=== PATIENT | female | born 1930 | race Caucasian/White ===

== ENCOUNTER 2019-02-23 10:24 | Emergency (ER) | payer MEDICARE, OTHER ==
[~2019-02-23] VITALS: Ht 162 cm; Wt 61.4 kg
[2019-02-23 10:47] LABS: BILIRUBIN,URINE NEGATIVE (NEGATIVE); CLARITY,URINE CLEAR; COLOR,URINE YELLOW; GLUCOSE, URINE (UA) NEGATIVE (NEGATIVE); KETONES,URINE NEGATIVE (NEGATIVE); LEUKOCYTE ESTERASE ,URINE 1+ (NEGATIVE); NITRITE,URINE NEGATIVE (NEGATIVE); PH,URINE 5.5 (5-9); PROTEIN,URINE NEGATIVE (NEGATIVE)
[2019-02-23] MEDS ORDERED: LOTE5GEL (10:48)
[2019-02-23] MEDS ORDERED: LATA7.5D (10:48)
[2019-02-23 10:55] LABS: BACTERIA,URINE FEW /HPF; RBC,URINE 0-2 /HPF; YEAST,URINE FEW /HPF
--- NOTE | 2019-02-23 10:56 | ED Abdominal Pain ---
General Chief Complaint: Abdominal/GI Problems Stated Complaint: ABD PAIN Nursing Triage Note: ARRIVED VIA AMB TO ROOM 07. COMPLAINS OF RUQ PAIN SINCE END OF JANUARY. HAS HAD A SCAN AND WAS TOLD SHE HAD PROBLEMS WITH HER GALLBLADDER BUT NEEDS A SCAN THAT IS DONE HERE AND WAS TOLD SHE COULDNT GET IN FOR THAT FOR A COUPLE OF FEW WEEKS. Sepsis Screen: No Definite Risk Source of Information: Patient Exam Limitations: No Limitations History of Present Illness Date Seen by Provider: Feb 23, 2019 Time Seen by Provider: 10:53 Initial Comments Otherwise healthy 88-year-old female who takes no medications present to ER with right upper quadrant abdominal pain since February 06. The pain has been constant since then and it is occasionally worse. Food sometimes causes her heartburn but does not worsen the pain. She had a gallbladder ultrasound at [facility] (primary care is Dr. Engel). Reportedly, this showed a polyp in the gallbladder and she is scheduled for a hepatobiliary scan on March 09. Timing/Duration: 1-2 Days Severity/Quality: Moderate Location: RUQ Radiation: No Radiation Activities at Onset: None Associated Symptoms: Denies Symptoms Allergies and Home Medications Allergies Coded Allergies: No Known Drug Allergies (Unverified , 02/23/19) Home Medications Cephalexin 500 Mg Capsule, 500 MG PO TID Prescribed by: JULIET ESPINO on 02/23/19 1242 Fluconazole 150 Mg Tablet, 150 MG PO DAILY Prescribed by: JULIET ESPINO on 02/23/19 1242 Pantoprazole Sodium 40 Mg Tablet.dr, 40 MG PO DAILY Prescribed by: JULIET ESPINO on 02/23/19 1238 Tramadol HCl 50 Mg Tablet, 50 MG PO Q6H PRN for PAIN-MODERATE (5-7) Prescribed by: JULIET ESPINO on 02/23/19 1238 Patient Home Medication List Home Medication List Reviewed: Yes Review of Systems Review of Systems Constitutional: see HPI EENTM: No Symptoms Reported Respiratory: No Symptoms Reported Cardiovascular: No Symptoms Reported Gastrointestinal: See HPI, Abdominal Pain; Denies Diarrhea, Denies Nausea, Denies Poor Appetite Genitourinary: No Symptoms Reported Musculoskeletal: no symptoms reported Skin: no symptoms reported Psychiatric/Neurological: No Symptoms Reported Endocrine: No Symptoms Reported Past Evsxnvw-Dpbtwq-Kvzhjl Hx Patient Social History Alcohol Use: Denies Use Recreational Drug Use: No Smoking Status: Never a Smoker Recent Foreign Travel: No Contact w/Someone Who Travel: No Recent Infectious Disease Expo: No Recent Hopitalizations: No Seasonal Allergies Seasonal Allergies: No Past Medical History Surgeries: Yes (CORNEA REPLACEMENT ) Appendectomy, Hysterectomy, Orthopedic Respiratory: No Cardiac: No Neurological: No Genitourinary: No Gastrointestinal: No Musculoskeletal: No Endocrine: No HEENT: No Cancer: No Physical Exam Vital Signs Vital Signs - First Documented 02/23/19 10:30 Temp 36.9 Pulse 84 Resp 16 B/P (MAP) 146/94 (111) Pulse Ox 98 O2 Delivery Room Air Capillary Refill : Less Than 3 Seconds Height/Weight/BMI Height: '" Weight: lbs. oz. kg; 23.00 BMI Method: General Appearance: WD/WN, no apparent distress HEENT: PERRL/EOMI, normal ENT inspection Respiratory: normal breath sounds, no respiratory distress, no accessory muscle use Cardiovascular: regular rate, rhythm, no murmur Gastrointestinal: normal bowel sounds, non tender, soft; No distended, No guarding, No rebound, No tenderness Extremities: normal range of motion, non-tender Neurologic/Psychiatric: alert, normal mood/affect, oriented x 3 Skin: normal color, warm/dry Progress/Results/Core Measures Results/Orders Lab Results Laboratory Tests Test 02/23/19 10:35 02/23/19 10:55 Range/Units Urine Color YELLOW Urine Clarity CLEAR Urine pH 5.5 5-9 Urine Specific [place] 1.020 1.016-1.022 Urine Protein NEGATIVE NEGATIVE Urine Glucose (UA) NEGATIVE NEGATIVE Urine Ketones NEGATIVE NEGATIVE Urine Nitrite NEGATIVE NEGATIVE Urine Bilirubin NEGATIVE NEGATIVE Urine Urobilinogen 0.2 < = 1.0 MG/DL Urine Leukocyte Esterase 1+ H NEGATIVE Urine RBC (Auto) 2+ H NEGATIVE Urine RBC 0-2 /HPF Urine WBC 5-10 H /HPF Urine Squamous Epithelial Cells 5-10 /HPF Urine Crystals NONE /LPF Urine Bacteria FEW H /HPF Urine Casts NONE /LPF Urine Mucus NEGATIVE /LPF Urine Yeast FEW H /HPF Urine Culture Indicated YES White Blood Count 7.4 4.3-11.0 10^3/uL Red Blood Count 4.47 4.35-5.85 10^6/uL Hemoglobin 12.5 11.5-16.0 G/DL Hematocrit 39 35-52 % Mean Corpuscular Volume 87 80-99 FL Mean Corpuscular Hemoglobin 28 25-34 PG Mean Corpuscular Hemoglobin Concent 32 32-36 G/DL Red Cell Distribution Width 14.4 10.0-14.5 % Platelet Count 332 130-400 10^3/uL Mean Platelet Volume 9.1 7.4-10.4 FL Neutrophils (%) (Auto) 81 H 42-75 % Lymphocytes (%) (Auto) 7 L 12-44 % Monocytes (%) (Auto) 11 0-12 % Eosinophils (%) (Auto) 0 0-10 % Basophils (%) (Auto) 1 0-10 % Neutrophils # (Auto) 6.0 1.8-7.8 X 10^3 Lymphocytes # (Auto) 0.5 L 1.0-4.0 X 10^3 Monocytes # (Auto) 0.8 0.0-1.0 X 10^3 Eosinophils # (Auto) 0.0 0.0-0.3 10^3/uL Basophils # (Auto) 0.1 0.0-0.1 10^3/uL Neutrophils % (Manual) 84 % Lymphocytes % (Manual) 4 % Monocytes % (Manual) 8 % Eosinophils % (Manual) 0 % Basophils % (Manual) 1 % Band Neutrophils 3 % Blood Morphology Comment NORMAL Sodium Level 137 135-145 MMOL/L Potassium Level 4.3 3.6-5.0 MMOL/L Chloride Level 98 98-107 MMOL/L Carbon Dioxide Level 28 21-32 MMOL/L Anion Gap 11 5-14 MMOL/L Blood Urea Nitrogen 21 H 7-18 MG/DL Creatinine 0.88 0.60-1.30 MG/DL Estimat Glomerular Filtration Rate > 60 BUN/Creatinine Ratio 24 Glucose Level 105 70-105 MG/DL Calcium Level 9.8 8.5-10.1 MG/DL Corrected Calcium 10.0 8.5-10.1 MG/DL Total Bilirubin 0.5 0.1-1.0 MG/DL Aspartate Amino Transf (AST/SGOT) 19 5-34 U/L Alanine Aminotransferase (ALT/SGPT) 7 0-55 U/L Alkaline Phosphatase 103 40-136 U/L Total Protein 7.1 6.4-8.2 GM/DL Albumin 3.8 3.2-4.5 GM/DL Lipase 14 8-78 U/L My Eusebia Orders - JULIET ESPINO SACK LIFTER Cbc With Automated Diff (02/23/19 10:36) Comprehensive Metabolic Panel (02/23/19 10:36) Ua Culture If Indicated (02/23/19 10:36) Ed Iv/Invasive Line Start (02/23/19 10:36) Lipase (02/23/19 10:36) Ct Abdomen/Pelvis W (02/23/19 10:52) Antacid Suspension (Mylanta Suspension (02/23/19 11:00) Lidocaine 2% Viscous 15 Ml (Xylocaine Vi (02/23/19 11:00) Urine Culture (02/23/19 10:35) Manual Differential (02/23/19 10:55) Iohexol Injection (Omnipaque 350 Mg/Ml 1 (02/23/19 11:30) Received Contrast (Hold Metformin- Contr (02/23/19 11:30) Ns (Ivpb) (Sodium Chloride 0.9% Ivpb Bag (02/23/19 11:30) Medications Given in ED Current Medications Medications Dose Ordered Sig/Jacklyn Route Start Time Stop Time Status Last Admin Dose Admin Al Hydrox/Mg Hydrox/Simethicone 30 ml ONCE ONCE PO 02/23/19 11:00 02/23/19 11:01 DC 02/23/19 11:05 30 ML Iohexol 100 ml ONCE ONCE IV 02/23/19 11:30 02/23/19 11:31 DC 02/23/19 12:13 74 ML Lidocaine HCl 10 ml ONCE ONCE PO 02/23/19 11:00 02/23/19 11:01 DC 02/23/19 11:04 10 ML Sodium Chloride 100 ml ONCE ONCE IV 02/23/19 11:30 02/23/19 11:31 DC 02/23/19 12:13 80 ML Vital Signs/I&O 02/23/19 10:30 Temp 36.9 Pulse 84 Resp 16 B/P (MAP) 146/94 (111) Pulse Ox 98 O2 Delivery Room Air Blood Pressure Mean: 111 POS Diagnostic Imaging Diagonstic Imaging: CT Comments NAME: ELOISE ISLAS [facility] REC#: [id number] PT STATUS: REG ER : 1932 PHYSICIAN: JULIET ESPINO APRN ADMIT DATE: 02/23/19/ER Draft POSDate of Exam:02/23/19 CT ABDOMEN/PELVIS W PROCEDURE: CT abdomen and pelvis with contrast. TECHNIQUE: Multiple contiguous axial images were obtained through the abdomen and pelvis after administration of intravenous contrast. Auto Exposure Controls were utilized during the CT exam to meet ALARA standards for radiation dose reduction. INDICATION: Right-sided abdominal pain since February 06. CORRELATION STUDY: None. FINDINGS: There is presence of a small left pleural effusion which may be somewhat loculated with thickened appearance about the pleural surface. Question of slight nodularity. There is a slightly more simple trace right pleural effusion. There are bibasilar areas of consolidation and/or atelectasis. There is, however, partial visualization of a potential area of consolidation and/or mass at the right mid to lower lung field. The partially visualized area measures 14 x 8 mm. There is also a question of slight nodularity in the deep posterior right lower lobe, approximately 11 mm in size. A small area of low attenuation, possibly malignant, in the left lobe of the liver favors probable fatty infiltration. No definitive focal lesion. Gallbladder is present and unremarkable without significant bile duct dilatation. Spleen is upper limits of normal in size. A rounded low-density lesion in the anteromedial aspect of the spleen measuring 16 mm. Pancreas and adrenal glands are not well visualized but appear generally unremarkable. There is slightly asymmetrically diminished enhancement in the peripheral cortex of the anterior mid right kidney, nonspecific. Definitive mass is not otherwise suggested. No hydronephrosis or obstruction. There is somewhat diffusely fluid-filled small bowel present. Generalized thickening with some hyperemia of the bowel suggested. There is mcom-ox-ieaswmwz severity fecal retention throughout the colon. Also some fecalized material. Generalized haziness about the mesentery without significant ascites. No free air. Moderate aortoiliac wall calcification, nonaneurysmal. Major branches are patent proximally. Portal venous system appears patent. There are no findings to suggest underlying bowel obstruction. The appendix is reported as absent. The urinary bladder is unremarkable. Uterus is absent. There are enlarged bilateral inguinal lymph nodes. Given size, these raise concern for pathologic lymphadenopathy such as with lymphoma. Marker lymph node on the left measures 2.3 x 3.0 cm. Marker lymph node on the right measures 2.3 x 2.0 cm. Rather advanced degenerative changes about the lumbar spine. Marked disc space narrowing. Likely degenerative spondylolisthesis is also present. IMPRESSION: 1. Diffuse somewhat prominent bowel wall thickening with hyperemia suggestive of potential nonspecific enteritis. No high-degree bowel obstruction. Fecalized small bowel contents may be reflective of underlying slow small bowel transit. However, no findings to suggest obstruction. Appendix is not visualized and reported as absent. 2. Slightly asymmetric enhancement suggested about the right kidney. Possibility of underlying pyelonephritis would be difficult to exclude. Correlation with urinalysis is recommended. Mass lesion would be considered less likely but not excluded. 3. Small pleural effusions which may be partially loculated on the left. 4. There are areas of parenchymal density in both lung bases which may be reflective of atelectasis or infiltrate. However, partial visualization of potential mass not excluded. Short-term follow-up CT imaging of the chest would be recommended for reassessment. 5. There are rather enlarged bilateral inguinal lymph nodes. Findings are concerning for potential underlying malignancy, such as lymphoma until proven otherwise. 6. Indeterminate low-density splenic mass. Dictated on workstation # [id number] Dict: 02/23/19 1234 Trans: 02/23/19 1253 [id number] Interpreted by: RICK DE SANTIAGO DO Electronically signed by: Departure Communication (Admissions) minimal improvement after GI cocktail Impression Primary Impression: RUQ abdominal pain Additional Impression: Urinary tract infection Qualified Codes: N30.00 - Acute cystitis without hematuria Disposition: HOME, SELF-CARE Condition: Stable Departure-Patient Inst. Decision time for Depature: 12:35 Referrals: ASHOK ENGEL MD (PCP) Primary Care Physician JAY STRONG BRETT D DO KIDO, TAKAAKI MD Patient Instructions: No Instuctions Given Add. Discharge Instructions: 1. Follow-up with one of the surgeons listed. In the meantime take an acid interpreter translator as directed. 2. Return to ER for any fevers intolerable pain or other concerns. 3. Follow up with your doctor next week for the abnormal appearance of the lymph nodes in your groin which could be related to an infectious or a cancerous process as well as the abnormal appearance of the right kidney which could represent either a mass or an area of infection, Scripts Fluconazole (Diflucan) 150 Mg Tablet 150 MG PO DAILY, #2 TAB Prov: JULIET ESPINO SACK LIFTER 02/23/19 Cephalexin (Keflex) 500 Mg Capsule 500 MG PO TID, #15 CAP Prov: JULIET ESPINO APRN 02/23/19 Tramadol HCl (Ultram) 50 Mg Tablet 50 MG PO Q6H PRN for PAIN-MODERATE (5-7), #14 TAB Prov: JULIET ESPINO APRN 02/23/19 Pantoprazole Sodium (Protonix) 40 Mg Tablet.dr 40 MG PO DAILY, #20 TAB Prov: JULIET ESPINO APRN 02/23/19 Copy Copies To 1: ASHOK ENGEL MD, PETER J APRN Feb 23, 2019 10:56 POS
[2019-02-23] MEDS ORDERED: LIDOCAINE 2% VISCOUS 15 ML UDC PO ONE (11:00)
[2019-02-23] MEDS ORDERED: ANTACID SUSP 30 ML UDC (MYLANTA) PO ONE (11:00)
[2019-02-23 11:01] LABS: BASOPHILS # (AUTO) 0.1 10^3/uL (0.0-0.1); BASOPHILS % (AUTO) 1 % (0-10); EOSINOPHILS % (AUTO) 0 % (0-10); HEMATOCRIT 39 % (35-52); HEMOGLOBIN 12.5 G/DL (11.5-16.0); LYMPHOCYTES # (AUTO) 0.5 X 10^3 (1.0-4.0); LYMPHOCYTES % (AUTO) 7 % (12-44); MEAN CORPUSCULAR HEMOGLOBIN 28 PG (25-34); MEAN CORPUSCULAR HGB CONC 32 G/DL (32-36); MEAN CORPUSCULAR VOLUME 87 FL (80-99); MEAN PLATELET VOLUME 9.1 FL (7.4-10.4); MONOCYTES # (AUTO) 0.8 X 10^3 (0.0-1.0); MONOCYTES % (AUTO) 11 % (0-12); NEUTROPHILS % (AUTO) 81 % (42-75); PLATELET COUNT 332 10^3/uL (130-400); RED CELL DISTRIBUTION WIDTH 14.4 % (10.0-14.5); WHITE BLOOD COUNT 7.4 10^3/uL (4.3-11.0)
[2019-02-23 11:23] LABS: ALANINE AMINOTRANSFERASE 7 U/L (0-55); ALBUMIN 3.8 GM/DL (3.2-4.5); ALKALINE PHOSPHATASE 103 U/L (40-136); BILIRUBIN,TOTAL 0.5 MG/DL (0.1-1.0); BUN/CREATININE RATIO 24; CALCIUM 9.8 MG/DL (8.5-10.1); CARBON DIOXIDE 28 MMOL/L (21-32); CHLORIDE 98 MMOL/L (98-107); CREATININE SERUM 0.88 MG/DL (0.60-1.30); GFR ESTIMATED > 60; GLUCOSE 105 MG/DL (70-105); LIPASE 14 U/L (8-78); POTASSIUM 4.3 MMOL/L (3.6-5.0); SODIUM 137 MMOL/L (135-145); TOTAL PROTEIN 7.1 GM/DL (6.4-8.2)
[2019-02-23 11:25] LABS: BAND NEUTROPHILS 3 %; BASOPHILS % (MANUAL) 1 %; EOSINOPHILS % (MANUAL) 0 %; LYMPHOCYTES % (MANUAL) 4 %; MONOCYTES % (MANUAL) 8 %; NEUTROPHILS % (MANUAL) 84 %; RBC MORPH NORMAL
[2019-02-23] MEDS ORDERED: HOLD METFORMIN - RECEIVED CONTRAST 20 ML VIAL IV SCH (11:30)
[2019-02-23] MEDS ORDERED: IOHEXOL 350 MG/ML 100 ML (OMNIPAQUE 350) VIAL IV ONE (11:30)
[2019-02-23] MEDS ORDERED: NS 100 ML (IVPB) BAG IV ONE (11:30)
--- NOTE | 2019-02-23 11:51 | NUR ---
PT STATES THE GI COCKTAIL HELPED HER A LITTLE BIT. NOTIFIED THAT WE ARE WAITING ON CT TO COME AND GET HER. DENIES NEEDS AT THIS TIME.
[2019-02-23] MEDS ORDERED: PANT40TA2 PO (12:38)
[2019-02-23] MEDS ORDERED: TRAM-42 PO (12:38)
[2019-02-23] MEDS ORDERED: FLUC150T PO (12:42)
[2019-02-23] MEDS ORDERED: CEPH-507 PO (12:42)
--- NOTE | 2019-02-23 12:53 | Diagnostic Imaging Report ---
PROCEDURE: CT abdomen and pelvis with contrast. TECHNIQUE: Multiple contiguous axial images were obtained through the abdomen and pelvis after administration of intravenous contrast. Auto Exposure Controls were utilized during the CT exam to meet ALARA standards for radiation dose reduction. INDICATION: Right-sided abdominal pain since February 06. CORRELATION STUDY: None. FINDINGS: There is presence of a small left pleural effusion which may be somewhat loculated with thickened appearance about the pleural surface. Question of slight nodularity. There is a slightly more simple trace right pleural effusion. There are bibasilar areas of consolidation and/or atelectasis. There is, however, partial visualization of a potential area of consolidation and/or mass at the right mid to lower lung field. The partially visualized area measures 14 x 8 mm. There is also a question of slight nodularity in the deep posterior right lower lobe, approximately 11 mm in size. A small area of low attenuation, possibly malignant, in the left lobe of the liver favors probable fatty infiltration. No definitive focal lesion. Gallbladder is present and unremarkable without significant bile duct dilatation. Spleen is upper limits of normal in size. A rounded low-density lesion in the anteromedial aspect of the spleen measuring 16 mm. Pancreas and adrenal glands are not well visualized but appear generally unremarkable. There is slightly asymmetrically diminished enhancement in the peripheral cortex of the anterior mid right kidney, nonspecific. Definitive mass is not otherwise suggested. No hydronephrosis or obstruction. There is somewhat diffusely fluid-filled small bowel present. Generalized thickening with some hyperemia of the bowel suggested. There is mzig-jc-pvygosil severity fecal retention throughout the colon. Also some fecalized material. Generalized haziness about the mesentery without significant ascites. No free air. Moderate aortoiliac wall calcification, nonaneurysmal. Major branches are patent proximally. Portal venous system appears patent. There are no findings to suggest underlying bowel obstruction. The appendix is reported as absent. The urinary bladder is unremarkable. Uterus is absent. There are enlarged bilateral inguinal lymph nodes. Given size, these raise concern for pathologic lymphadenopathy such as with lymphoma. Marker lymph node on the left measures 2.3 x 3.0 cm. Marker lymph node on the right measures 2.3 x 2.0 cm. Rather advanced degenerative changes about the lumbar spine. Marked disc space narrowing. Likely degenerative spondylolisthesis is also present. IMPRESSION: 1. Diffuse somewhat prominent bowel wall thickening with hyperemia suggestive of potential nonspecific enteritis. No high-degree bowel obstruction. Fecalized small bowel contents may be reflective of underlying slow small bowel transit. However, no findings to suggest obstruction. Appendix is not visualized and reported as absent. 2. Slightly asymmetric enhancement suggested about the right kidney. Possibility of underlying pyelonephritis would be difficult to exclude. Correlation with urinalysis is recommended. Mass lesion would be considered less likely but not excluded. 3. Small pleural effusions which may be partially loculated on the left. 4. There are areas of parenchymal density in both lung bases which may be reflective of atelectasis or infiltrate. However, partial visualization of potential mass not excluded. Short-term follow-up CT imaging of the chest would be recommended for reassessment. 5. There are rather enlarged bilateral inguinal lymph nodes. Findings are concerning for potential underlying malignancy, such as lymphoma until proven otherwise. 6. Indeterminate low-density splenic mass. Dictated by: Dictated on workstation # [id number]
[2019-02-23] MEDS ORDERED: cefTRIAXone FOR IV USE 1,000 MG in WATER (STERILE) FOR INJECTION 10 ML IV ONE (13:00)
[2019-02-23] MEDS ORDERED: KETOROLAC 30 MG/ML VIAL IVP ONE (13:00)
[2019-02-23 13:25] VITALS: BP 127/72
== END 2019-02-23 13:25 | disposition home or self-care (01) ==
LOC: EDUNIT# 10:24 → ER 10:27
DX: N39.0 Urinary tract infection, site not specified (principal); R10.11 Right upper quadrant pain; Z90.49 Acquired absence of other specified parts of digestive tract; Z90.710 Acquired absence of both cervix and uterus
CPT/HCPCS: 36415; 74177; 80053; 81000; 83690; 85007; 85027; 87088

== ENCOUNTER → 2019-03-09 | Outpatient (CLI) | payer MEDICARE, OTHER ==
[~2019-03-09] MED LIST: CATHETER FLUSH 10 ML SYR IV PRN; CEPH-507 PO; FLUC150T PO; HOLD METFORMIN - RECEIVED CONTRAST 20 ML VIAL IV SCH; IOHEXOL 350 MG/ML 100 ML (OMNIPAQUE 350) VIAL IV ONE; LATA7.5D; LOTE5GEL; NS 100 ML (IVPB) BAG IV ONE; PANT40TA2 PO; TRAM-42 PO
--- NOTE | 2019-03-09 10:31 | Diagnostic Imaging Report ---
EXAMINATION: CT Chest with intravenous contrast. TECHNIQUE: Multiple contiguous axial images were obtained through the chest after the uneventful administration of intravenous contrast. All CT scans use one or more of the following dose optimizing techniques: automated exposure control, MA and/or KvP adjustment based on a patient size and exam type, or iterative reconstruction. HISTORY: Fall, sternal pain COMPARISON: None available. FINDINGS: There is a 14 x 11 mm spiculated nodule in the posterior segment of the right upper lobe. No edema or pneumonia. There are small bilateral pleural effusions with overlying atelectasis. No pneumothorax is seen. There is a moderate amount of pericardial fluid contained within the superior recess. There is an oblique fracture through the mid sternum with a small retrosternal hematoma. No deep or mediastinal injury is seen. The sternal fracture is centered in the area of lucency potentially representing a pathologic fracture through a lytic lesion. Limited views of the upper abdomen reveal a few cystic lesions in the spleen. 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 There is a mild pathologic compression fracture of the right aspect of T9. IMPRESSION: 1. Sternal fracture with small retrosternal hematoma, possibly through a lytic lesion in the sternum. 2. Pathologic fracture of T9 with a soft tissue mass involving the right aspect of the vertebral body and extending into the pedicle and lamina. 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 3. Spiculated nodule in the posterior segment of the right upper lobe. This potentially could be the source of the T9 lytic lesion but could also be another site of metastatic disease. Dictated by: Dictated on workstation # [id number]
== END ==
LOC: RAD 08:59
PROVIDERS: ATTEND Family Medicine
DX: S22.20XA Unspecified fracture of sternum, initial encounter for closed fracture (principal); R91.1 Solitary pulmonary nodule; M84.48XA Pathological fracture, other site, initial encounter for fracture; M48.04 Spinal stenosis, thoracic region; J90 Pleural effusion, not elsewhere classified; J98.11 Atelectasis; M89.9 Disorder of bone, unspecified; W19.XXXA Unspecified fall, initial encounter
CPT/HCPCS: 71260

== ENCOUNTER → 2019-03-09 | Outpatient (CLI) | payer MEDICARE, OTHER ==
[~2019-03-09] MED LIST changes: -HOLD METFORMIN - RECEIVED CONTRAST 20 ML VIAL IV SCH; -IOHEXOL 350 MG/ML 100 ML (OMNIPAQUE 350) VIAL IV ONE; -NS 100 ML (IVPB) BAG IV ONE
--- NOTE | 2019-03-09 12:14 | Diagnostic Imaging Report ---
INDICATION: 88-year-old female with right upper quadrant pain. COMPARISON: CT chest of 03/09/2019. TECHNIQUE: Anterior scintigraphic imaging of the abdomen was performed after the intravenous administration of 5.48 mCi Tc-99m Choletec. FINDINGS: The upper abdomen was imaged for 60 minutes with the gamma camera. There is prompt homogeneous uptake of radiopharmaceutical by the liver. There is activity in the common duct and gallbladder by 30 minutes. Small bowel activity is seen by 20 minutes. After 60 minutes, the patient received 8 oz of ensure by mouth. After 60 minutes, the gallbladder ejection fraction was calculated to be 10% which is abnormally low. IMPRESSION: 1. Patent common and cystic bile ducts. 2. Gallbladder dysfunction characterized by ejection fraction of only 10%. Dictated by: Dictated on workstation # [id number]
== END ==
LOC: CARD 09:00 → EDUNIT# 10:00
PROVIDERS: ATTEND Nurse Practitioner Family
DX: R10.11 Right upper quadrant pain (principal)
CPT/HCPCS: 78227

== ENCOUNTER 2019-03-21 11:53 | Outpatient (CLI) | payer MEDICARE, OTHER ==
[~2019-03-21] VITALS: Ht 162.6 cm; Wt 61.4 kg
[~2019-03-21 11:53] MED LIST changes: -CATHETER FLUSH 10 ML SYR IV PRN
== END 2019-03-21 12:10 | disposition home or self-care (01) ==
LOC: PREOP 11:53
PROVIDERS: ATTEND Surgery
DX: Z01.818 Encounter for other preprocedural examination (principal)

== ENCOUNTER → 2019-04-10 | Outpatient (CLI) | payer MEDICARE, OTHER ==
--- NOTE | 2019-04-10 15:03 | Diagnostic Imaging Report ---
INDICATION: Lymphoma, initial staging. TECHNIQUE: Serum blood glucose level at the time of injection is 132 mg/dL. Patient was administered 12.7 mCi F-18 FDG intravenously and PET imaging was performed from the top of the skull to mid thighs. Noncontrast CT was also performed for attenuation correction and anatomic correlation. All CT scans use one or more of the following dose optimizing techniques: automated exposure control, MA and/or KvP adjustment based on patient size and exam type or iterative reconstruction. COMPARISON: No prior PET/CT study is available for comparison. Comparison is made with recent CT chest study from 03/09/[address] abdomen and pelvis study from 02/23/2019. FINDINGS: Conventional CT does show moderate size bilateral pleural effusions which have increased since prior CT. PET portion of the study does show symmetric activity throughout the brain. No suspicious hypermetabolic foci within the neck soft tissues is seen. There is artifact in the region of the left shoulder prosthesis. There is a hypermetabolic lesion involving upper thoracic vertebral body, approximately T5. This appears lytic on the conventional CT. SUV max is approximately 10. Small hypermetabolic focus along the lateral aspect of the left scapula is noted. There is significant hypermetabolism involving a lytic lesion of the sternum. This demonstrates SUV max of approximately 11. There is a slightly hypermetabolic left axillary lymph node. There appears to be a lytic lesion involving approximately T10 vertebral body as well as the pedicle and right transverse process. SUV max is approximately 7.8. There is an area of soft tissue hypermetabolism in the upper abdomen left upper quadrant which appears to be between the spleen and the greater curvature of the stomach. SUV max is approximately 10. There is some hypermetabolism in the region of the kartik hepatis as well with SUV max of approximately 5.7. This most likely represents kartik hepatis lymphadenopathy. There is a hypermetabolic right obturator lymph node as well. SUV max approximately 4.8. There is some mildly hypermetabolic bilateral inguinal lymph nodes, largest on the right with SUV max of approximately 4.6. IMPRESSION: 1. Increased size bilateral pleural effusions since CT study from 03/09/2019. 2. Hypermetabolic lytic osseous lesions, as described involving the thoracic spine, sternum and left scapula. 3. Hypermetabolic lymphadenopathy in the region of the kartik hepatis and bilateral inguinal and right obturator region. There is indeterminate focus of hypermetabolism in the left upper quadrant of the abdomen between the stomach and spleen. Dictated by: Dictated on workstation # [id number]
== END ==
LOC: RAD 10:44
PROVIDERS: ATTEND Internal Medicine Hematology & Oncology
DX: Z01.810 Encounter for preprocedural cardiovascular examination (principal); C85.90 Non-Hodgkin lymphoma, unspecified, unspecified site; J90 Pleural effusion, not elsewhere classified

== ENCOUNTER → 2019-04-12 | Outpatient (CLI) | payer MEDICARE, OTHER ==
[~2019-04-12] MED LIST changes: +CATHETER FLUSH 10 ML SYR IV PRN; +HEParin (CENTRAL IV FLUSH) 500 UNIT/5 ML SYR ONE
--- NOTE | 2019-04-12 15:34 | Diagnostic Imaging Report ---
INDICATION: Lymphoma. TECHNIQUE: Patient was administered 29.0 mCi of technetium-99m pertechnetate labeled to the patient's red blood cells and gated first pass cardiac imaging was performed. COMPARISON: No prior studies are available for comparison. FINDINGS: Left ventricular ejection fraction is calculated to be 63%. IMPRESSION: Left ventricular ejection fraction of 63%. Dictated by: Dictated on workstation # [id number]
== END ==
LOC: CARD 13:50
PROVIDERS: ATTEND Internal Medicine Hematology & Oncology
DX: C85.90 Non-Hodgkin lymphoma, unspecified, unspecified site (principal)
CPT/HCPCS: 78472

== ENCOUNTER 2019-06-16 20:22 | Emergency (ER) | payer MEDICARE, OTHER ==
[~2019-06-16] VITALS: Ht 162.6 cm; Wt 53.1 kg
[~2019-06-16 20:22] MED LIST changes: -CATHETER FLUSH 10 ML SYR IV PRN; -HEParin (CENTRAL IV FLUSH) 500 UNIT/5 ML SYR ONE
--- OUTSIDE RECORDS SUMMARY | 2019-06-16 20:31 | XMS REPORT | Continuity of Care Document ---
Author Organization Unknown Address Unknown Phone Unavailable Allergies Active Description Code Type Severity Reaction Onset Reported/Identified Relationship to Patient Clinical Status Yes NO KNOWN DRUG ALLERGIES UNKNOWN NO KNOWN DRUG ALLERG Yes NO KNOWN DRUG ALLERGIES UNKNOWN UNKNOWN Yes No Known Drug Allergies [id number] Drug Allergy Unknown N/A 02/23/2019 Medications Medication Packaging Start Date St op Date Route Dosage Sig CEPHALEXIN CAP 500 MG (KEFLEX) MG 11/10/2016 11/10/2016 ONCE&1753 TETANUS,DIPTH,PERT ADULT INJ 0 (ADACEL SYRINGE) ml 01/16/2017 01/16/2017 ONCE&2100 POLY/BACI/NEOM OINT OINT (NEOSPORIN) alexander 01/16/2017 01/16/2017 ONCE&2100 KETOROLAC VIAL INJ 15 MG/CC (TORADOL VIAL) MG 03/02/2019 03/02/2019 ONCE&1617 NORMAL SALINE 500CC IV BAG I NJ 0.9 % (NS 500CC IV BAG) ml 03/02/2019 03/02/2019 ONCE&1617 Problems Date Dx Coded Attending Type Code Diagnosis Diagnosed By 11/10/2016 Charlene Denney 891.0 OPEN WOUND OF KNEE, LEG [EXCEPT THIGH], AND ANKLE, WITHOUT MENTION OF COMPLICATION 11/10/2016 Charlene Denney S81.811A LACERATION W/O FOREIGN BODY, RIGHT LOWER LEG, INIT ENCNTR 11/19/2016 A V58.32 ENC OUNTER FOR REMOVAL OF SUTURES 11/19/2016 A Z48.02 ENC OUNTER FOR REMOVAL OF SUTURES 11/25/2016 Charlene Denney V58.32 ENCOUNTER FOR REMOVAL OF SUTURES 11/25/2016 Charlene Denney Z48.02 ENCOUNTER FOR REMOVAL OF SUTURES 01/16/2017 RENÉE RUIZ 891.0 OPEN WOUND OF KNEE, LEG [EXCEPT THIGH], AND ANKLE, WITHOUT MENTION OF COMPLICATION 01/16/2017 RENÉE RUIZ S81.8 11A LACERATION W/O FOREIGN BODY, RIGHT LOWER LEG, INIT ENCNTR 01/27/2017 Charlene Denney V58.32 ENCOUNTER FOR REMOVAL OF SUTURES 01/27/2017 Charlene Denney Z48.02 ENCOUNTER FOR REMOVAL OF SUTURES 06/19/2018 Chaz Villa 825.25 FRACTURE OF METATARSAL BONE(S), CLOSED 06/19/2018 Chaz Villa S92.352A DISP FX OF FIFTH METATARSAL BONE, LEFT FOOT, INIT 01/25/2019 Chaz iVlla N39.0 URINARY TRACT INFECTION, SITE NOT SPECIFIED 01/25/2019 Chaz Villa N39.0 URINARY TRACT INFECTION, SITE NOT SPECIFIED 01/25/2019 Chaz Villa N39.0 URINARY TRACT INFECTION, SITE NOT SPECIFIED 02/23/2019 JULIET ESPINO APRN Ot N39 .0 URINARY TRACT INFECTION, SITE NOT SPECIF 02/23/2019 JULIET ESPINO APRN Ot R10.11 RIGHT UPPER QUADRANT PAIN 02/23/2019 JULIET ESPINO FREIGHT HUSTLER Ot Z90.49 ACQUIRED ABSENCE OF OTHER SPECIFIED PART 02/23/2019 JULIET ESPINO FREIGHT HUSTLER Ot Z90.710 ACQUIRED ABSENCE OF BOTH CERVIX AND UTER 02/26/2019 JULIET ESPINO APRN Ot N39 .0 URINARY TRACT INFECTION, SITE NOT SPECIF 02/26/2019 JULIET ESPINO APRN Ot R10.11 RIGHT UPPER QUADRANT PAIN 02/26/2019 JULIET ESPINO APRN Ot Z90.49 ACQUIRED ABSENCE OF OTHER SPECIFIED PART 02/26/2019 JULIET ESPINO FREIGHT HUSTLER Ot Z90.710 ACQUIRED ABSENCE OF BOTH CERVIX AND UTER 03/01/2019 JULIET ESPINO APRN Ot N39 .0 URINARY TRACT INFECTION, SITE NOT SPECIF 03/01/2019 JULIET ESPINO APRN Ot R10.11 RIGHT UPPER QUADRANT PAIN 03/01/2019 JULIET ESPINO FREIGHT HUSTLER Ot Z90.49 ACQUIRED ABSENCE OF OTHER SPECIFIED PART 03/01/2019 JULIET ESPINO FREIGHT HUSTLER Ot Z90.710 ACQUIRED ABSENCE OF BOTH CERVIX AND UTER 03/02/2019 Chaz Villa 511 PLEURISY 03/02/2019 Chaz Villa 786.5 CHEST PAIN 03/02/2019 Chaz Villa 787.7 ABNORMAL FECES 03/02/2019 Daisy Chaz Carmen R07.89 OTHER CHEST PAIN 03/02/2019 Chaz Villa R09.1 PLEURISY 03/02/2019 Chaz Villa R19.5 OTHER FECAL ABNORMALITIES 03/02/2019 Chaz Villa S81.811A LACERATION W/O FOREIGN BODY, RIGHT LOWER LEG, INIT ENCNTR 03/02/2019 Chaz Villa S92.352A DISP FX OF FIFTH METATARSAL BONE, LEFT FOOT, INIT 03/02/2019 Chaz Villa Z48.02 ENCOUNTER FOR REMOVAL OF SUTURES 03/03/2019 Chaz Villa 511 PLEURISY 03/03/2019 Chaz Villa R09.1 PLEURISY 03/03/2019 Chaz Villa S81.811A LACERATION W/O FOREIGN BODY, RIGHT LOWER LEG, INIT ENCNTR 03/03/2019 Chaz Villa S92.352A DISP FX OF FIFTH METATARSAL BONE, LEFT FOOT, INIT 03/03/2019 Chaz Villa Z48.02 ENCOUNTER FOR REMOVAL OF SUTURES 03/12/2019 ELBA SCHMIDT LOT WORKER Ot R10. 11 RIGHT UPPER QUADRANT PAIN 03/12/2019 RICKI BRITO, ASHOK L Ot J9 0 PLEURAL EFFUSION, NOT ELSEWHERE CLASSIFI 03/12/2019 RICKI BRITO, ASHOK L Ot J98.11 ATELECTASIS 03/12/2019 RICKI BRITO, ASHOK L Ot M48.04 SPINAL STENOSIS, THORACIC REGION 03/12/2019 RICKI BRITO, ASHOK L Ot M84.48XA PATHOLOGICAL FRACTURE, OTHER SITE, INIT 03/12/2019 RICKI BRITO, ASHOK L Ot M89.9 DISORDER OF BONE, UNSPECIFIED 03/12/2019 RICKI BRITO, ASHOK L Ot R91.1 SOLITARY PULMONARY NODULE 03/12/2019 RICKI BRITO, ASHOK Bustillo Ot S22.20XA UNSP FRACTURE OF STERNUM, INIT ENCNTR FO 03/12/2019 RICKI BRITO, ASHOK L Ot W19.XXXA UNSPECIFIED FALL, INITIAL ENCOUNTER 03/21/2019 CECILY BRITO, ANGELITA Ot Z01.81 8 ENCOUNTER FOR OTHER PREPROCEDURAL EXAMIN 03/22/2019 ELBA SCHMIDTP Ot R10. 11 RIGHT UPPER QUADRANT PAIN 03/22/2019 RICKI BRITO, ASHOK Bustillo Ot J9 0 PLEURAL EFFUSION, NOT ELSEWHERE CLASSIFI 03/22/2019 ASHOK ROBISON MD Ot J98.11 ATELECTASIS 03/22/2019 ASHOK ROBISON MD Ot M48.04 SPINAL STENOSIS, THORACIC REGION 03/22/2019 ASHOK ROBISON MD Ot M84.48XA PATHOLOGICAL FRACTURE, OTHER SITE, INIT 03/22/2019 ASHOK ROBISON MD Ot M89.9 DISORDER OF BONE, UNSPECIFIED 03/22/2019 ASHOK ROBISON MD Ot R91.1 SOLITARY PULMONARY NODULE 03/22/2019 ASHOK ROBISON MD Ot S22.20XA UNSP FRACTURE OF STERNUM, INIT ENCNTR FO 03/22/2019 ASHOK ROBISON MD Ot W19.XXXA UNSPECIFIED FALL, INITIAL ENCOUNTER 03/22/2019 ANGELITA TONY MD, Ot 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, UNSP, NODES OF ING RE 03/30/2019 ANGELITA TONY MD Ot K21.9 GASTRO-ESOPHAGEAL REFLUX DISEASE WITHOUT 03/30/2019 ANGELITA TONY MD, Ot K82.8 OTHER SPECIFIED DISEASES OF GALLBLADDER 03/30/2019 ANGELITA TONY MD, Ot Z82.49 FAMILY HX OF ISCHEM HEART DIS AND OTH DI 03/30/2019 ANGELITA TONY MD, Ot Z90.71 0 ACQUIRED ABSENCE OF BOTH CERVIX AND UTER 03/30/2019 ANGELITA TONY MD, Ot Z90.89 ACQUIRED ABSENCE OF OTHER ORGANS 03/30/2019 ANGELITA TONY MD, Ot 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 04/02/2019 Chaz Villa 511.1 PLEURISY WITH EFFUSION, WITH MENTION OF A BACTERIAL CAUSE OTHER THAN TUBERCULOSIS 04/02/2019 Chaz Villa J90 PLEURAL EFFUSION, NOT ELSEWHERE CLASSIFIED 04/02/2019 Chaz Villa S81.811A LACERATION W/O FOREIGN BODY, RIGHT LOWER LEG, INIT ENCNTR 04/02/2019 Chaz Villa S92.352A DISP FX OF FIFTH METATARSAL BONE, LEFT FOOT, INIT 04/02/2019 Chaz Villa Z48.02 ENCOUNTER FOR REMOVAL OF SUTURES 04/04/2019 ASHOK ROBISON MD Ot J9 0 PLEURAL EFFUSION, NOT ELSEWHERE CLASSIFI 04/04/2019 ASHOK ROBISON MD, Ot J98.11 ATELECTASIS 04/04/2019 ASHOK ROBISON MD, Ot M48.04 SPINAL STENOSIS, THORACIC REGION 04/04/2019 ASHOK ROBISON MD Ot M84.48XA PATHOLOGICAL FRACTURE, OTHER SITE, INIT 04/04/2019 ASHOK ROBISON MD Ot M89.9 DISORDER OF BONE, UNSPECIFIED 04/04/2019 ASHOK ROBISON MD Ot R91.1 SOLITARY PULMONARY NODULE 04/04/2019 ASHOK ROBISON MD Ot S22.20XA UNSP FRACTURE OF STERNUM, INIT ENCNTR FO 04/04/2019 ASHOK ROBISON MD Ot W19.XXXA UNSPECIFIED FALL, INITIAL ENCOUNTER 04/10/2019 ANEUDY SELBY MD Ot Z01.810 ENCOUNTER FOR PREPROCEDURAL CARDIOVASCUL 04/11/2019 ANEUDY SELBY MD Ot C85.90 NON-HODGKIN LYMPHOMA, UNSPECIFIED, UNSPE 04/11/2019 ANEUDY SELBY MD Ot J90 PLEURAL EFFUSION, NOT ELSEWHERE CLASSIFI 04/11/2019 ANEUDY SELBY MD Ot Z01.810 ENCOUNTER FOR PREPROCEDURAL CARDIOVASCUL 04/15/2019 ANEUDY SELBY MD Ot C85.90 NON-HODGKIN LYMPHOMA, UNSPECIFIED, UNSPE 04/19/2019 ANEUDY SELBY MD, Ot C85.90 NON-HODGKIN LYMPHOMA, UNSPECIFIED, UNSPE 04/26/2019 ANEUDY SELBY MD, Ot C85.90 NON-HODGKIN LYMPHOMA, UNSPECIFIED, UNSPE 05/08/2019 ANEUDY SELBY MD, Ot C85.90 NON-HODGKIN LYMPHOMA, UNSPECIFIED, UNSPE 05/11/2019 ANEUDY SELBY MD, Ot C85.90 NON-HODGKIN LYMPHOMA, UNSPECIFIED, UNSPE Procedures There is no data. Results Test Result Range Urine Culture - 01/26/19 11:01 PRELIM CULTURE RESULTS 50,000-100,000 Gram P ositive Mixed Erum. FINAL CULTURE RESULTS 50,000-100,000 Mixed Erum MEDIA PLATED Setup at 14:24 on 01/26/2019 CULTURE SOURCE cc Urine Culture - 02/12/19 11:10 PRELIM CULTURE RESULTS <10,000 Gram Positive Mixed Erum [id number] Skin Contaminant FINAL CULTURE RESULTS <10,000 Gram Positive Mixed Erum [id number] Skin Contaminant [id number] Further Workup done MEDIA PLATED Setup at 14:31 on 02/12/2019 CULTURE SOURCE clean catch Amylase - 02/12/19 14:04 Amylase 34 U/L 20-100 Lipase - 02/12/19 14:04 Lipase 15 U/L 7-59 Complete urinalysis with reflex to cultu re - 02/23/19 10:35 Urine color determination YELLOW NRG Urine clarity determination CLEAR NR G Urine pH measurement by test strip 5.5 5-9 Specific gravity of urine by test strip 1.020 1.016-1.022 Urine protein assay by test strip, semi-quantitative NEGATIVE NEGATIVE Urine glucose detection by automated test strip NE GATIVE NEGATIVE Erythrocytes detection in urine sediment by light micr oscopy 2+ NEGATIVE Urine ketones detection by automated test strip NE GATIVE NEGATIVE Urine nitrite detection by test strip NEGATIVE NEGATIVE Urine total bilirubin detection by test strip NEGA TIVE NEGATIVE Urine urobilinogen measurement by automated test strip (mass/volume) 0.2 mg/dL < = 1.0 Urine leukocyte esterase detection by dipstick 1+ NEGATIVE Automated urine sediment erythrocyte cou nt by microscopy (number/high power field) [HPF] NRG Automated urine sediment leukocyte count by microscopy (number/high power field) [HPF] NRG Bacteria detection in urine sediment by light microsco py FEW NRG Squamous epithelial cells detection in u rine sediment by light microscopy 5-10 NRG Crystals detection in urine sediment by light microsco py NONE NRG Casts detection in urine sediment by light microscopy NONE NRG Mucus detection in urine sediment by light microscopy NEGATIVE NRG Complete urinalysis with reflex to culture YES NRG Yeast detection in urine sediment by light microscopy FEW NRG Bacterial urine culture - 02/23/19 10:35 Bacterial urine culture 3 OR MORE NRG COLONY COUNT 30,000 CFU/ML NRG FTX;REPORTABLE GRAM POSITIVE ISOLATES; SUGGESTING NRG FREE TEXT ENTRY 2 PROBABLE COLLECTION CONTAMINATIO N WITH NRG FREE TEXT ENTRY 3 SKIN ERUM. NO SUSCEPTIBILITY PE RFORMED. NRG Complete blood count (CBC) with automate d white blood cell (WBC) differential - 02/23/19 10:55 Blood leukocytes automated count (number/volume) 7.4 10*3/uL 4.3-11.0 Blood erythrocytes automated count (number/volume) 4.47 10*6/uL 4.35-5.85 Venous blood hemoglobin measurement (mass/volume) 12.5 g/dL 11.5-16.0 Blood hematocrit (volume fraction) 39 % 35-52 Automated erythrocyte mean corpuscular volume 87 [ foz_us] 80-99 Automated erythrocyte mean corpuscular h emoglobin (mass per erythrocyte) 28 pg 25-34 Automated erythrocyte mean corpuscular h emoglobin concentration measurement (mass/volume) 32 g/dL 32-36 Automated erythrocyte distribution width ratio 14. 4 % 10.0- 14.5 Automated blood platelet count (count/volume) 332 10*3/uL 130-400 Automated blood platelet mean volume measurement 9.1 [foz_us] 7.4-10.4 Automated blood neutrophils/100 leukocytes 81 % 42-75 Automated blood lymphocytes/100 leukocytes 7 % 12-44 Blood monocytes/100 leukocytes 11 % 0-12 Automated blood eosinophils/100 leukocytes 0 % 0-10 Automated blood basophils/100 leukocytes 1 % 0-10 Blood neutrophils automated count (number/volume) 6.0 10*3 1.8-7.8 Blood lymphocytes automated count (number/volume) 0.5 10*3 1.0-4.0 Blood monocytes automated count (number/volume) 0. 8 10*3 0.0-1.0 Automated eosinophil count 0.0 10*3/uL 0 .0-0.3 Automated blood basophil count (count/volume) 0.1 10*3/uL 0.0-0.1 Comprehensive metabolic panel - 02/23/19 10:55 Serum or plasma sodium measurement (moles/volume) 137 mmol/L 135-145 Serum or plasma potassium measurement (moles/volume) 4.3 mmol/L 3.6-5.0 Serum or plasma chloride measurement (moles/volume) 98 mmol/L 98-107 Carbon dioxide 28 mmol/L 21-32 Serum or plasma anion gap determination (moles/volume) 11 mmol/L 5-14 Serum or plasma urea nitrogen measurement (mass/volume ) 21 mg/dL 7-18 Serum or plasma creatinine measurement (mass/volume) 0.88 mg/dL 0.60-1.30 Serum or plasma urea nitrogen/creatinine mass ratio 24 NRG Serum or plasma creatinine measurement w ith calculation of estimated glomerular filtration rate > NRG Serum or plasma glucose measurement (mass/volume) 105 mg/dL 70-105 Serum or plasma calcium measurement (mass/volume) 9.8 mg/dL 8.5-10.1 Serum or plasma total bilirubin measurement (mass/volu me) 0.5 mg/dL 0.1-1.0 Serum or plasma alkaline phosphatase alicia surement (enzymatic activity/volume) 103 U/L 40-136 Serum or plasma aspartate aminotransfera se measurement (enzymatic activity/volume) 19 U/L 5-34 Serum or plasma alanine aminotransferase measurement (enzymatic activity/volume) 7 U/L 0-55 Serum or plasma protein measurement (mass/volume) 7.1 g/dL 6.4-8.2 Serum or plasma albumin measurement (mass/volume) 3.8 g/dL 3.2-4.5 CALCIUM CORRECTED 10.0 mg/dL 8.5-10.1 Lipase - 02/23/19 10:55 Lipase 14 U/L 8-78 Manual absolute plasma cell count - 02/11 05/30 10:55 Blood monocytes/100 leukocytes 8 % NRG Manual blood segmented neutrophils/100 leukocytes 84 % NRG Blood band neutrophils/100 leukocytes 3 % NRG Manual blood lymphocytes/100 leukocytes 4 % NRG Manual eosinophils/100 leukocytes in nose 0 % NRG Manual blood basophils/100 leukocytes 1 % NRG Blood erythrocyte morphology finding identification NORMAL NR Lactate Dehydrogenase - 03/02/19 14:49 LDH 320 U/L 90-240 IFOBT Occult Blood - 03/02/19 16:17 IFOBT Occult Blood POSITIVE Negative [facility] - 03/03/19 16:59 Anion Gap 14 6-14 BUN 30 mg/dL 5-25 Calcium 9.2 mg/dL 8.3-10.4 Chloride 100 mmol/L 95-114 CO2 28 mEq/L 22-33 Creat 0.99 mg/dL 0.50-1.50 eGFR 53 mL/min/1.73m2 >59 Glucose 115 mg/dL 70-110 Osmo 292 280-295 Potassium 4.3 mmol/L 3.5-5.3 Sodium 138 mmol/L 134-148 [facility] - 03/05/19 11:06 Anion Gap 17 6-14 BUN 22 mg/dL 5-25 Calcium 9.2 mg/dL 8.3-10.4 Chloride 98 mmol/L 95-114 CO2 25 mEq/L 22-33 Creat 1.01 mg/dL 0.50-1.50 eGFR 52 mL/min/1.73m2 >59 Glucose 159 mg/dL 70-110 Osmo 287 280-295 Potassium 3.9 mmol/L 3.5-5.3 Sodium 136 mmol/L 134-148 Methicillin resistant Staphylococcus aur eus (MRSA) screening culture - 03/22/19 12:40 Methicillin resistant Staphylococcus aureus (MRSA) scr eening culture NEG NRG [facility] - 04/02/19 13:32 Anion Gap 16 6-14 BUN 16 mg/dL 5-25 Calcium 9.3 mg/dL 8.3-10.4 Chloride 100 mmol/L 95-114 CO2 28 mEq/L 22-33 Creat 0.82 mg/dL 0.50-1.50 eGFR 66 mL/min/1.73m2 >59 Glucose 103 mg/dL 70-110 Osmo 290 280-295 Potassium 4.1 mmol/L 3.5-5.3 Sodium 140 mmol/L 134-148 Encounters ACCT No. Visit Date/Time Discharge Status Pt. Type Provider Facility Loc./Unit Complaint [id number] 04/02/2019 12:07:00 04/02/2019 14:55 :00 [id number] 03/12/2019 00:00:00 03/12/2019 23:59 :00 DIS Outpatient ASHOK ROBISON [id number] 03/05/2019 10:58:00 03/05/2019 23:59 :00 DIS Outpatient [facility] [place] [id number] 03/03/2019 15:14:00 03/03/2019 17:37 :00 [id number] 03/02/2019 14:03:00 03/02/2019 17:25 :00 [facility] [id number] 02/28/2019 00:00:00 02/28/2019 23:59 :00 DIS Outpatient JERI ROBISONHEL [id number] 02/01/2019 13:37:00 02/01/2019 23:59: 00 DIS Outpatient JERI ROBISONHEL [id number] 02/01/2019 12:51:00 02/01/2019 23:59: 00 DIS Outpatient ASHOK ROBISON [id number] 01/26/2019 11:10:00 01/26/2019 23:59: 00 DIS Outpatient Dionen Schmidt [id number] 06/28/2018 09:54:00 06/28/2018 23:59: 00 DIS Outpatient ENIOALEJANDRA [id number] 06/19/2018 14:45:00 06/19/2018 16:35: 00 [id number] 01/27/2017 15:42:00 01/27/2017 16:00: 00 DIS Outpatient Charlene Denney [id number] 01/16/2017 20:28:00 01/16/2017 21:08: 00 DIS Outpatient RENÉE RUIZ [id number] 11/25/2016 15:37:00 11/25/2016 15:49: 00 DIS Outpatient Charlene Denney [id number] 11/10/2016 14:55:00 11/10/2016 17:54: 00 DIS Outpatient Олег [facility] ER [id number] 02/12/2019 13:12:00 Document Registration [id number] 11/20/2016 18:48:51 Document Registration [id number] 11/10/2016 17:54:35 Document Registration [id number] 04/12/2019 13:50:00 23:59:59 CLS Outpatient ANEUDY SELBY MD, [facility] CARD LYMPHOMA [id number] 04/10/2019 10:44:00 23:59:59 CLS Outpatient ANEUDY SELBY MD, V [facility] RAD LYMPHOMA [id number] 03/22/2019 11:33:00 15:30:00 DIS Outpatient ANGELITA TONY MD [facility] SDC LYMPHADENOPATHY [id number] 03/21/2019 11:53:00 12:10:00 DIS Outpatient ANGELITA TONY MD [facility] PREOP LYMPHADENOPATHY [id number] 03/09/2019 10:00:00 23:59:59 CLS Outpatient ELBA SCHMIDT [facility] CARD RUQ ABD PAIN [id number] 03/09/2019 08:59:00 23:59:59 CLS Outpatient ASHOK ROBISON MD [facility] RAD ABN CT ABD, FALL W/ [facility] PAIN [id number] 02/23/2019 10:27:00 13:25:00 DIS Emergency JULIET ESPINO FREIGHT HUSTLER [facility] ER ABD PAIN [id number] 06/25/2019 13:15:00 P EN Preadmit ANEUDY SELBY MD [facility] RAD FOLLICULAR LYMPHOMA [id number] 06/14/2019 10:56:[address] Outpatient ANEUDY SELBY MD [facility] ONC
--- NOTE | 2019-06-16 21:01 | ED General ---
General Stated Complaint: NOT FEELING WELL, TEMP OF 100 Source of Information: Patient Exam Limitations: No Limitations History of Present Illness Date Seen by Provider: Jun 16, 2019 Time Seen by Provider: 20:30 Initial Comments To ER for private vehicle with reports of not feeling well and fever. 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 She saw them last week because of some low back pain and was diagnosed with shingles on the left low back. She was started on medication for that. Today she developed a fever up to 101 at home The and generally isn't feeling well. She reports minimal pain in the left low back, she does report some pain in a band around the mid abdomen. She denies any cough or shortness of breath. Denies any sore throat, denies any urinary symptoms no constipation and no diarrhea. She called Dr Webb who was concerned and referred to ER. Timing/Duration: 2-3 Days Severity: Moderate Allergies and Home Medications Allergies Coded Allergies: No Known Drug Allergies (Unverified , 02/23/19) Home Medications Tramadol HCl 50 Mg Tablet, 50 MG PO Q6H PRN for PAIN-MODERATE (5-7) Prescribed by: JULIET ESPINO on 02/23/19 1238 Patient Home Medication List Home Medication List Reviewed: Yes Review of Systems Review of Systems Constitutional: see HPI; No chills, No fever EENTM: see HPI Respiratory: no symptoms reported; No cough Cardiovascular: no symptoms reported; No chest pain Genitourinary: no symptoms reported Musculoskeletal: no symptoms reported Skin: no symptoms reported Psychiatric/Neurological: No Symptoms Reported Hematologic/Lymphatic: No Symptoms Reported Immunological/Allergic: no symptoms reported Past Utoyzfw-Xkhjqs-Exzaco Hx Patient Social History 2nd Hand Smoke Exposure: No Recent Hopitalizations: No Seasonal Allergies Seasonal Allergies: No Past Medical History Surgeries: Yes (CORNEA REPLACEMENT, L total shoulder) Appendectomy, Hysterectomy, Orthopedic, Tonsillectomy Respiratory: No Currently Using CPAP: No Currently Using BIPAP: No Cardiac: No 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 oz. kg; 23.22 BMI Method: General Appearance: No Apparent Distress, WD/WN Eyes: Bilateral Eye Normal Inspection, Bilateral Eye PERRL, Bilateral Eye EOMI Neck: Full Range of Motion, Normal Inspection Respiratory: No Accessory Muscle Use, No Respiratory Distress Cardiovascular: Regular Rate, Rhythm, Normal Peripheral Pulses Gastrointestinal: Normal Bowel Sounds, Non Tender, Soft; No Tenderness Back: Other (there is an erythematous vesicular rash left low back consistent with herpes zoster) Extremity: Normal Capillary Refill, Normal Inspection Neurologic/Psychiatric: Alert, Oriented x3 Skin: Normal Color, Warm/Dry Progress/Results/Core Measures Suspected Sepsis SIRS Temperature: Pulse: Respiratory Rate: Laboratory Tests 06/16/19 20:49: White Blood Count 12.2H Blood Pressure / Mean: Laboratory Tests 06/16/19 20:49: Creatinine 0.96, Platelet Count 282, Total Bilirubin 0.6 Results/Orders Lab Results Laboratory Tests Test 06/16/19 20:49 06/16/19 20:55 Range/Units White Blood Count 12.2 H 4.3-11.0 10^3/uL Red Blood Count 4.34 L 4.35-5.85 10^6/uL Hemoglobin 12.4 11.5-16.0 G/DL Hematocrit 38 35-52 % Mean Corpuscular Volume 88 80-99 FL Mean Corpuscular Hemoglobin 29 25-34 PG Mean Corpuscular Hemoglobin Concent 33 32-36 G/DL Red Cell Distribution Width 19.1 H 10.0-14.5 % Platelet Count 282 130-400 10^3/uL Mean Platelet Volume 9.8 7.4-10.4 FL Neutrophils (%) (Auto) 83 H 42-75 % Lymphocytes (%) (Auto) 5 L 12-44 % Monocytes (%) (Auto) 11 0-12 % Eosinophils (%) (Auto) 0 0-10 % Basophils (%) (Auto) 1 0-10 % Neutrophils # (Auto) 10.1 H 1.8-7.8 X 10^3 Lymphocytes # (Auto) 0.6 L 1.0-4.0 X 10^3 Monocytes # (Auto) 1.4 H 0.0-1.0 X 10^3 Eosinophils # (Auto) 0.0 0.0-0.3 10^3/uL Basophils # (Auto) 0.1 0.0-0.1 10^3/uL Neutrophils % (Manual) 80 % Lymphocytes % (Manual) 7 % Monocytes % (Manual) 6 % Eosinophils % (Manual) 1 % Basophils % (Manual) 1 % Band Neutrophils 5 % Anisocytosis MODERATE Microcytosis SLIGHT Macrocytosis SLIGHT Spherocytes SLIGHT Sodium Level 130 L 135-145 MMOL/L Potassium Level 4.3 3.6-5.0 MMOL/L Chloride Level 95 L 98-107 MMOL/L Carbon Dioxide Level 23 21-32 MMOL/L Anion Gap 12 5-14 MMOL/L Blood Urea Nitrogen 16 7-18 MG/DL Creatinine 0.96 0.60-1.30 MG/DL Estimat Glomerular Filtration Rate 55 BUN/Creatinine Ratio 17 Glucose Level 117 H 70-105 MG/DL Calcium Level 8.7 8.5-10.1 MG/DL Corrected Calcium 8.9 8.5-10.1 MG/DL Total Bilirubin 0.6 0.1-1.0 MG/DL Aspartate Amino Transf (AST/SGOT) 17 5-34 U/L Alanine Aminotransferase (ALT/SGPT) 10 0-55 U/L Alkaline Phosphatase 139 H 40-136 U/L C-Reactive Protein High Sensitivity 1.09 H 0.00-0.50 MG/DL Total Protein 6.3 L 6.4-8.2 GM/DL Albumin 3.8 3.2-4.5 GM/DL Procalcitonin 0.09 <0.10 NG/ML Urine Color YELLOW Urine Clarity CLEAR Urine pH 7.5 5-9 Urine Specific [place] 1.020 1.016-1.022 Urine Protein NEGATIVE NEGATIVE Urine Glucose (UA) NEGATIVE NEGATIVE Urine Ketones NEGATIVE NEGATIVE Urine Nitrite NEGATIVE NEGATIVE Urine Bilirubin NEGATIVE NEGATIVE Urine Urobilinogen 0.2 < = 1.0 MG/DL Urine Leukocyte Esterase TRACE H NEGATIVE Urine RBC (Auto) 1+ H NEGATIVE Urine RBC 2-5 H /HPF Urine WBC 2-5 /HPF Urine Squamous Epithelial Cells 0-2 /HPF Urine Crystals PRESENT H /LPF Urine Amorphous Sediment RARE ANAYELI PHOSPHATE H /LPF Urine Bacteria TRACE /HPF Urine Casts NONE /LPF Urine Mucus NEGATIVE /LPF Urine Culture Indicated NO Micro Results Microbiology 06/16/19 Influenza Types A,B Antigen (SCOTT) - Final, Complete My Orders Orders - JULIET ESPINO APRN Cbc With Automated Diff (06/16/19 20:51) Comprehensive Metabolic Panel (06/16/19 20:51) Hs C Reactive Protein (06/16/19 20:51) Ua Culture If Indicated (06/16/19 20:51) Influenza A And B Antigens (06/16/19 20:51) Chest 1 View, Ap/Pa Only (06/16/19 20:51) Ct Abdomen/Pelvis Wo (06/16/19 20:51) Ed Iv/Invasive Line Start (06/16/19 20:51) Manual Differential (06/16/19 20:49) Procalcitonin (Pct) (06/16/19 21:17) Vital Signs/I&O 06/16/19 20:25 Temp 37.7 Pulse 101 Resp 18 B/P (MAP) 131/81 (98) Pulse Ox 94 O2 Delivery Room Air Capillary Refill : Departure Impression Primary Impression: Shingles Additional Impression: Constipation due to slow transit Disposition: HOME, SELF-CARE Condition: Stable Departure-Patient Inst. Decision time for Depature: 22:22 Referrals: ASHOK ROBISON MD (PCP/Family) Primary Care Physician Patient Instructions: Alli Add. Discharge Instructions: 1. Return to ER for any concerns 2. Follow-up with her doctor next week 3. Stool softeners as directed starting tomorrow. Scripts Polyethylene Glycol 3350 (Miralax) 17 Gm Powd.pack 17 GM PO BID, #10 EACH Prov: JULIET ESPINO APRN 06/16/19 JULIET ESPINO APRN Jun 16, 2019 21:01
[2019-06-16 21:07] LABS: BASOPHILS # (AUTO) 0.1 10^3/uL (0.0-0.1); BASOPHILS % (AUTO) 1 % (0-10); EOSINOPHILS % (AUTO) 0 % (0-10); HEMATOCRIT 38 % (35-52); HEMOGLOBIN 12.4 G/DL (11.5-16.0); LYMPHOCYTES # (AUTO) 0.6 X 10^3 (1.0-4.0); LYMPHOCYTES % (AUTO) 5 % (12-44); MEAN CORPUSCULAR HEMOGLOBIN 29 PG (25-34); MEAN CORPUSCULAR HGB CONC 33 G/DL (32-36); MEAN CORPUSCULAR VOLUME 88 FL (80-99); MEAN PLATELET VOLUME 9.8 FL (7.4-10.4); MONOCYTES # (AUTO) 1.4 X 10^3 (0.0-1.0); MONOCYTES % (AUTO) 11 % (0-12); NEUTROPHILS # (AUTO) 10.1 X 10^3 (1.8-7.8); NEUTROPHILS % (AUTO) 83 % (42-75); PLATELET COUNT 282 10^3/uL (130-400); RED CELL DISTRIBUTION WIDTH 19.1 % (10.0-14.5); WHITE BLOOD COUNT 12.2 10^3/uL (4.3-11.0)
[2019-06-16 21:07] LABS: BILIRUBIN,URINE NEGATIVE (NEGATIVE); CLARITY,URINE CLEAR; COLOR,URINE YELLOW; GLUCOSE, URINE (UA) NEGATIVE (NEGATIVE); KETONES,URINE NEGATIVE (NEGATIVE); LEUKOCYTE ESTERASE ,URINE TRACE (NEGATIVE); NITRITE,URINE NEGATIVE (NEGATIVE); PH,URINE 7.5 (5-9); PROTEIN,URINE NEGATIVE (NEGATIVE)
[2019-06-16 21:13] LABS: AMORPHOUS SEDIMENT,UR RARE AMOR PHOSPHATE /LPF; BACTERIA,URINE TRACE /HPF; SQUAMOUS EPITHELIAL CELL,UR 0-2 /HPF
[2019-06-16 21:23] LABS: ALBUMIN 3.8 GM/DL (3.2-4.5); BILIRUBIN,TOTAL 0.6 MG/DL (0.1-1.0); CALCIUM 8.7 MG/DL (8.5-10.1); CREATININE SERUM 0.96 MG/DL (0.60-1.30); POTASSIUM 4.3 MMOL/L (3.6-5.0); TOTAL PROTEIN 6.3 GM/DL (6.4-8.2)
[2019-06-16 21:36] LABS: ANISOCYTOSIS MODERATE; BAND NEUTROPHILS 5 %; BASOPHILS % (MANUAL) 1 %; EOSINOPHILS % (MANUAL) 1 %; LYMPHOCYTES % (MANUAL) 7 %; MICROCYTOSIS SLIGHT; MONOCYTES % (MANUAL) 6 %; NEUTROPHILS % (MANUAL) 80 %; SPHEROCYTES SLIGHT
[2019-06-16] MEDS ORDERED: POLY17PO6 PO (22:23)
[2019-06-16 22:42] VITALS: BP 141/65
--- NOTE | 2019-06-17 05:15 | Diagnostic Imaging Report ---
INDICATION: Dyspnea and fatigue AP view of the chest is obtained with comparison made to study of 03/22/2019. There is mild blunting of the costophrenic sulci with basilar atelectasis. This is somewhat improved compared to previous study. Overall heart size and pulmonary vascularity are unremarkable. There is no pneumothorax. Advanced degenerative changes and surgical findings are again seen in the shoulder girdles. IMPRESSION: Bilateral pleural fluid is improved compared to previous study with mild residual bilateral basilar atelectasis. Dictated by: Dictated on workstation # [id number]
--- NOTE | 2019-06-17 07:19 | Diagnostic Imaging Report ---
PROCEDURE: CT abdomen and pelvis without contrast. TECHNIQUE: Multiple contiguous axial images were obtained through the abdomen and pelvis without the use of intravenous contrast. Auto Exposure Controls were utilized during the CT exam to meet ALARA standards for radiation dose reduction. INDICATION: Abdominal pain and discomfort. Comparison is made to CT scan of the chest dated 03/09/[address] abdomen and pelvis dated 02/23/2019. Images through the lower chest reveal old right rib fracture laterally involving the 7th rib. There is [id number] bilateral pleural effusion with subjacent atelectasis in both lung bases. Unenhanced images of the liver and spleen reveal no focal abnormality, no definite gallbladder or pancreatic lesion is identified. Adrenal glands are somewhat prominent which may be due to hyperplasia. Unenhanced images of the kidneys are unremarkable. There is large bowel stool throughout the colon. Mild pelvic free fluid is noted. Bladder is unopacified but otherwise unremarkable. There is moderate lumbar spondylosis. Occasional mildly prominent mesenteric and central retroperitoneal lymph nodes are similar to previous study. IMPRESSION: Continued mild to moderate bilateral pleural effusion with subjacent atelectasis and/or pneumonitis. Otherwise, there are prominent mesenteric and central retroperitoneal lymph nodes unchanged from previous study. Small amount of pelvic free fluid is nonspecific and there is continued distention of colon with stool however no obstruction site is identified. Dictated by: Dictated on workstation # [id number]
== END 2019-06-16 22:43 | disposition home or self-care (01) ==
LOC: EDUNIT# 20:22 → ER 20:25
DX: B02.9 Zoster without complications (principal); K59.01 Slow transit constipation
CPT/HCPCS: 36415; 71045; 74176; 80053; 81000; 84145; 85007; 85027; 86141; 87804

== ENCOUNTER 2019-06-21 10:08 | Outpatient (RCR) | payer MEDICARE, OTHER ==
[2019-04-04 13:16] LABS: BASOPHILS % (AUTO) 1 % (0-10); EOSINOPHILS % (AUTO) 0 % (0-10); HEMATOCRIT 41 % (35-52); HEMOGLOBIN 12.5 G/DL (11.5-16.0); LYMPHOCYTES # (AUTO) 0.6 X 10^3 (1.0-4.0); LYMPHOCYTES % (AUTO) 7 % (12-44); MEAN CORPUSCULAR HEMOGLOBIN 27 PG (25-34); MEAN CORPUSCULAR HGB CONC 31 G/DL (32-36); MEAN CORPUSCULAR VOLUME 87 FL (80-99); MEAN PLATELET VOLUME 9.6 FL (7.4-10.4); MONOCYTES # (AUTO) 0.7 X 10^3 (0.0-1.0); MONOCYTES % (AUTO) 9 % (0-12); NEUTROPHILS # (AUTO) 7.2 X 10^3 (1.8-7.8); NEUTROPHILS % (AUTO) 84 % (42-75); PLATELET COUNT 357 10^3/uL (130-400); RED CELL DISTRIBUTION WIDTH 15.3 % (10.0-14.5); WHITE BLOOD COUNT 8.6 10^3/uL (4.3-11.0)
[2019-04-04 13:44] LABS: BUN/CREATININE RATIO 20; CARBON DIOXIDE 25 MMOL/L (21-32); CHLORIDE 101 MMOL/L (98-107); CREATININE SERUM 0.86 MG/DL (0.60-1.30); POTASSIUM 3.9 MMOL/L (3.6-5.0); SODIUM 139 MMOL/L (135-145)
[2019-04-04 13:45] LABS: ALANINE AMINOTRANSFERASE 9 U/L (0-55); ALBUMIN 3.5 GM/DL (3.2-4.5); ALKALINE PHOSPHATASE 119 U/L (40-136); BILIRUBIN,TOTAL 0.5 MG/DL (0.1-1.0); CALCIUM 9.5 MG/DL (8.5-10.1); GFR ESTIMATED > 60; GLUCOSE 141 MG/DL (70-105); TOTAL PROTEIN 6.6 GM/DL (6.4-8.2); URIC ACID 4.5 MG/DL (2.6-7.2)
[2019-04-04 22:13] LABS: HEPATITIS C ANTIBODY C Non-Reactive (Non-Reactive)
[2019-04-26 08:44] LABS: BASOPHILS % (AUTO) 1 % (0-10); EOSINOPHILS # (AUTO) 0.2 10^3/uL (0.0-0.3); EOSINOPHILS % (AUTO) 3 % (0-10); HEMATOCRIT 43 % (35-52); HEMOGLOBIN 13.3 G/DL (11.5-16.0); LYMPHOCYTES # (AUTO) 0.4 X 10^3 (1.0-4.0); LYMPHOCYTES % (AUTO) 6 % (12-44); MEAN CORPUSCULAR HEMOGLOBIN 27 PG (25-34); MEAN CORPUSCULAR HGB CONC 31 G/DL (32-36); MEAN CORPUSCULAR VOLUME 87 FL (80-99); MONOCYTES # (AUTO) 0.4 X 10^3 (0.0-1.0); MONOCYTES % (AUTO) 6 % (0-12); NEUTROPHILS # (AUTO) 5.9 X 10^3 (1.8-7.8); NEUTROPHILS % (AUTO) 84 % (42-75); PLATELET COUNT 160 10^3/uL (130-400); RED CELL DISTRIBUTION WIDTH 17.1 % (10.0-14.5); WHITE BLOOD COUNT 6.9 10^3/uL (4.3-11.0)
[2019-04-26 09:06] LABS: ALANINE AMINOTRANSFERASE 12 U/L (0-55); ALBUMIN 3.7 GM/DL (3.2-4.5); ALKALINE PHOSPHATASE 161 U/L (40-136); BILIRUBIN,TOTAL 0.8 MG/DL (0.1-1.0); BUN/CREATININE RATIO 22; CALCIUM 9.3 MG/DL (8.5-10.1); CARBON DIOXIDE 26 MMOL/L (21-32); CHLORIDE 101 MMOL/L (98-107); CREATININE SERUM 0.81 MG/DL (0.60-1.30); GFR ESTIMATED > 60; GLUCOSE 139 MG/DL (70-105); POTASSIUM 4.1 MMOL/L (3.6-5.0); SODIUM 136 MMOL/L (135-145); TOTAL PROTEIN 6.3 GM/DL (6.4-8.2)
[2019-05-03 10:47] LABS: BASOPHILS % (AUTO) 0 % (0-10); EOSINOPHILS # (AUTO) 0.2 10^3/uL (0.0-0.3); EOSINOPHILS % (AUTO) 2 % (0-10); HEMATOCRIT 43 % (35-52); HEMOGLOBIN 13.3 G/DL (11.5-16.0); LYMPHOCYTES # (AUTO) 0.5 X 10^3 (1.0-4.0); LYMPHOCYTES % (AUTO) 4 % (12-44); MEAN CORPUSCULAR HEMOGLOBIN 27 PG (25-34); MEAN CORPUSCULAR HGB CONC 31 G/DL (32-36); MEAN CORPUSCULAR VOLUME 87 FL (80-99); MEAN PLATELET VOLUME 9.9 FL (7.4-10.4); MONOCYTES # (AUTO) 0.9 X 10^3 (0.0-1.0); MONOCYTES % (AUTO) 8 % (0-12); NEUTROPHILS # (AUTO) 9.6 X 10^3 (1.8-7.8); NEUTROPHILS % (AUTO) 86 % (42-75); PLATELET COUNT 221 10^3/uL (130-400); RED CELL DISTRIBUTION WIDTH 17.6 % (10.0-14.5); WHITE BLOOD COUNT 11.3 10^3/uL (4.3-11.0)
[2019-05-03 11:01] LABS: ALANINE AMINOTRANSFERASE 12 U/L (0-55); ALBUMIN 3.6 GM/DL (3.2-4.5); ALKALINE PHOSPHATASE 200 U/L (40-136); BILIRUBIN,TOTAL 0.4 MG/DL (0.1-1.0); BUN/CREATININE RATIO 19; CALCIUM 8.7 MG/DL (8.5-10.1); CARBON DIOXIDE 28 MMOL/L (21-32); CHLORIDE 99 MMOL/L (98-107); CREATININE SERUM 0.74 MG/DL (0.60-1.30); GFR ESTIMATED > 60; GLUCOSE 104 MG/DL (70-105); POTASSIUM 4.3 MMOL/L (3.6-5.0); SODIUM 137 MMOL/L (135-145); TOTAL PROTEIN 5.9 GM/DL (6.4-8.2)
[2019-05-10 13:58] LABS: BASOPHILS # (AUTO) 0.1 10^3/uL (0.0-0.1); BASOPHILS % (AUTO) 0 % (0-10); EOSINOPHILS % (AUTO) 0 % (0-10); HEMATOCRIT 43 % (35-52); HEMOGLOBIN 13.4 G/DL (11.5-16.0); LYMPHOCYTES # (AUTO) 0.5 X 10^3 (1.0-4.0); LYMPHOCYTES % (AUTO) 4 % (12-44); MEAN CORPUSCULAR HEMOGLOBIN 27 PG (25-34); MEAN CORPUSCULAR HGB CONC 31 G/DL (32-36); MEAN CORPUSCULAR VOLUME 87 FL (80-99); MEAN PLATELET VOLUME 9.7 FL (7.4-10.4); MONOCYTES # (AUTO) 0.6 X 10^3 (0.0-1.0); MONOCYTES % (AUTO) 5 % (0-12); NEUTROPHILS # (AUTO) 10.5 X 10^3 (1.8-7.8); NEUTROPHILS % (AUTO) 91 % (42-75); PLATELET COUNT 274 10^3/uL (130-400); RED CELL DISTRIBUTION WIDTH 18.2 % (10.0-14.5); WHITE BLOOD COUNT 11.6 10^3/uL (4.3-11.0)
[2019-05-10 14:17] LABS: ALBUMIN 3.6 GM/DL (3.2-4.5); BILIRUBIN,TOTAL 0.3 MG/DL (0.1-1.0); CREATININE SERUM 1.13 MG/DL (0.60-1.30); POTASSIUM 4.4 MMOL/L (3.6-5.0); TOTAL PROTEIN 6.3 GM/DL (6.4-8.2)
[2019-05-17 08:49] LABS: BASOPHILS # (AUTO) 0.1 10^3/uL (0.0-0.1); BASOPHILS % (AUTO) 1 % (0-10); EOSINOPHILS # (AUTO) 0.1 10^3/uL (0.0-0.3); EOSINOPHILS % (AUTO) 1 % (0-10); HEMATOCRIT 41 % (35-52); LYMPHOCYTES # (AUTO) 0.4 X 10^3 (1.0-4.0); LYMPHOCYTES % (AUTO) 5 % (12-44); MEAN CORPUSCULAR HEMOGLOBIN 28 PG (25-34); MEAN CORPUSCULAR HGB CONC 32 G/DL (32-36); MEAN CORPUSCULAR VOLUME 88 FL (80-99); MEAN PLATELET VOLUME 9.8 FL (7.4-10.4); MONOCYTES # (AUTO) 0.8 X 10^3 (0.0-1.0); MONOCYTES % (AUTO) 10 % (0-12); NEUTROPHILS # (AUTO) 6.3 X 10^3 (1.8-7.8); NEUTROPHILS % (AUTO) 83 % (42-75); PLATELET COUNT 315 10^3/uL (130-400); RED CELL DISTRIBUTION WIDTH 18.7 % (10.0-14.5); WHITE BLOOD COUNT 7.7 10^3/uL (4.3-11.0)
[2019-05-17 09:12] LABS: ALANINE AMINOTRANSFERASE 8 U/L (0-55); ALBUMIN 3.6 GM/DL (3.2-4.5); ALKALINE PHOSPHATASE 108 U/L (40-136); BILIRUBIN,TOTAL 0.7 MG/DL (0.1-1.0); BUN/CREATININE RATIO 22; CALCIUM 9.2 MG/DL (8.5-10.1); CARBON DIOXIDE 26 MMOL/L (21-32); CHLORIDE 103 MMOL/L (98-107); CREATININE SERUM 0.78 MG/DL (0.60-1.30); GFR ESTIMATED > 60; GLUCOSE 133 MG/DL (70-105); POTASSIUM 4.1 MMOL/L (3.6-5.0); SODIUM 140 MMOL/L (135-145); TOTAL PROTEIN 6.1 GM/DL (6.4-8.2)
[2019-05-24 15:28] LABS: BASOPHILS # (AUTO) 0.1 10^3/uL (0.0-0.1); BASOPHILS % (AUTO) 0 % (0-10); EOSINOPHILS # (AUTO) 0.2 10^3/uL (0.0-0.3); EOSINOPHILS % (AUTO) 1 % (0-10); HEMATOCRIT 40 % (35-52); HEMOGLOBIN 12.5 G/DL (11.5-16.0); LYMPHOCYTES # (AUTO) 0.4 X 10^3 (1.0-4.0); LYMPHOCYTES % (AUTO) 2 % (12-44); MEAN CORPUSCULAR HEMOGLOBIN 28 PG (25-34); MEAN CORPUSCULAR HGB CONC 31 G/DL (32-36); MEAN CORPUSCULAR VOLUME 88 FL (80-99); MEAN PLATELET VOLUME 9.6 FL (7.4-10.4); MONOCYTES # (AUTO) 1.5 X 10^3 (0.0-1.0); MONOCYTES % (AUTO) 6 % (0-12); NEUTROPHILS # (AUTO) 23.3 X 10^3 (1.8-7.8); NEUTROPHILS % (AUTO) 91 % (42-75); PLATELET COUNT 301 10^3/uL (130-400); RED CELL DISTRIBUTION WIDTH 19.2 % (10.0-14.5); WHITE BLOOD COUNT 25.6 10^3/uL (4.3-11.0)
[2019-05-31 14:22] LABS: BASOPHILS # (AUTO) 0.1 10^3/uL (0.0-0.1); BASOPHILS % (AUTO) 1 % (0-10); EOSINOPHILS # (AUTO) 0.1 10^3/uL (0.0-0.3); EOSINOPHILS % (AUTO) 1 % (0-10); HEMATOCRIT 40 % (35-52); HEMOGLOBIN 12.8 G/DL (11.5-16.0); LYMPHOCYTES # (AUTO) 0.4 X 10^3 (1.0-4.0); LYMPHOCYTES % (AUTO) 4 % (12-44); MEAN CORPUSCULAR HEMOGLOBIN 28 PG (25-34); MEAN CORPUSCULAR HGB CONC 32 G/DL (32-36); MEAN CORPUSCULAR VOLUME 88 FL (80-99); MEAN PLATELET VOLUME 9.7 FL (7.4-10.4); MONOCYTES # (AUTO) 0.8 X 10^3 (0.0-1.0); MONOCYTES % (AUTO) 9 % (0-12); NEUTROPHILS # (AUTO) 7.5 X 10^3 (1.8-7.8); NEUTROPHILS % (AUTO) 85 % (42-75); PLATELET COUNT 278 10^3/uL (130-400); RED CELL DISTRIBUTION WIDTH 19.3 % (10.0-14.5); WHITE BLOOD COUNT 8.8 10^3/uL (4.3-11.0)
[2019-05-31 14:41] LABS: CALCIUM 9.2 MG/DL (8.5-10.1); CREATININE SERUM 0.89 MG/DL (0.60-1.30); POTASSIUM 4.1 MMOL/L (3.6-5.0)
[2019-06-07 09:35] LABS: BASOPHILS # (AUTO) 0.1 10^3/uL (0.0-0.1); BASOPHILS % (AUTO) 1 % (0-10); EOSINOPHILS # (AUTO) 0.1 10^3/uL (0.0-0.3); EOSINOPHILS % (AUTO) 1 % (0-10); HEMATOCRIT 39 % (35-52); HEMOGLOBIN 12.5 G/DL (11.5-16.0); LYMPHOCYTES # (AUTO) 0.4 X 10^3 (1.0-4.0); LYMPHOCYTES % (AUTO) 4 % (12-44); MEAN CORPUSCULAR HEMOGLOBIN 29 PG (25-34); MEAN CORPUSCULAR HGB CONC 32 G/DL (32-36); MEAN CORPUSCULAR VOLUME 89 FL (80-99); MEAN PLATELET VOLUME 9.5 FL (7.4-10.4); MONOCYTES # (AUTO) 0.4 X 10^3 (0.0-1.0); MONOCYTES % (AUTO) 4 % (0-12); NEUTROPHILS # (AUTO) 8.2 X 10^3 (1.8-7.8); NEUTROPHILS % (AUTO) 89 % (42-75); PLATELET COUNT 310 10^3/uL (130-400); RED CELL DISTRIBUTION WIDTH 19.1 % (10.0-14.5); WHITE BLOOD COUNT 9.2 10^3/uL (4.3-11.0)
[2019-06-07 09:56] LABS: ALANINE AMINOTRANSFERASE 11 U/L (0-55); ALBUMIN 3.7 GM/DL (3.2-4.5); ALKALINE PHOSPHATASE 103 U/L (40-136); BILIRUBIN,TOTAL 0.5 MG/DL (0.1-1.0); BUN/CREATININE RATIO 27; CALCIUM 8.8 MG/DL (8.5-10.1); CARBON DIOXIDE 24 MMOL/L (21-32); CHLORIDE 102 MMOL/L (98-107); CREATININE SERUM 0.82 MG/DL (0.60-1.30); GFR ESTIMATED > 60; GLUCOSE 140 MG/DL (70-105); MAGNESIUM 2.3 MG/DL (1.6-2.4); SODIUM 139 MMOL/L (135-145); TOTAL PROTEIN 6.2 GM/DL (6.4-8.2)
[2019-06-14 11:09] LABS: BASOPHILS # (AUTO) 0.1 10^3/uL (0.0-0.1); BASOPHILS % (AUTO) 1 % (0-10); EOSINOPHILS # (AUTO) 0.2 10^3/uL (0.0-0.3); EOSINOPHILS % (AUTO) 1 % (0-10); HEMATOCRIT 39 % (35-52); HEMOGLOBIN 12.4 G/DL (11.5-16.0); LYMPHOCYTES # (AUTO) 0.4 X 10^3 (1.0-4.0); LYMPHOCYTES % (AUTO) 2 % (12-44); MEAN CORPUSCULAR HEMOGLOBIN 28 PG (25-34); MEAN CORPUSCULAR HGB CONC 32 G/DL (32-36); MEAN CORPUSCULAR VOLUME 90 FL (80-99); MEAN PLATELET VOLUME 9.2 FL (7.4-10.4); MONOCYTES # (AUTO) 1.3 X 10^3 (0.0-1.0); MONOCYTES % (AUTO) 6 % (0-12); NEUTROPHILS # (AUTO) 17.7 X 10^3 (1.8-7.8); NEUTROPHILS % (AUTO) 90 % (42-75); PLATELET COUNT 306 10^3/uL (130-400); RED CELL DISTRIBUTION WIDTH 19.4 % (10.0-14.5); WHITE BLOOD COUNT 19.7 10^3/uL (4.3-11.0)
[2019-06-14 11:23] LABS: BUN/CREATININE RATIO 25; CALCIUM 8.8 MG/DL (8.5-10.1); CARBON DIOXIDE 28 MMOL/L (21-32); CHLORIDE 99 MMOL/L (98-107); CREATININE SERUM 0.77 MG/DL (0.60-1.30); GFR ESTIMATED > 60; GLUCOSE 112 MG/DL (70-105); POTASSIUM 4.3 MMOL/L (3.6-5.0); SODIUM 138 MMOL/L (135-145)
[~2019-06-21] VITALS: Ht 162.6 cm; Wt 53.5 kg
[~2019-06-21 10:08] MED LIST changes: +ACETAMINOPHEN 325 MG TAB (TYLENOL) CANCER CTR ONE; +ACETAMINOPHEN 325 MG TAB (TYLENOL) CANCER CTR PO PRN; +ACETAMINOPHEN 500 MG TAB (TYLENOL) CANCER CTR ONE; +CYCLOPHOSPHAMIDE IV SCH; +DOXORUBICIN HCL IV SCH; +FOSAPREPITANT DIMEGLUMINE 150 MG in NS (IVPB) CANCER CENTER ONLY 150 ML IV SCH; +MEPERIDINE (DEMEROL) INJ 50 MG/ML CANCER CTR IV PRN; +NS IV 1000 ML (CANCER CTR) IV SCH; +NS IV SCH; +ONDANSETRON 8 MG, DEXAMETHASONE 4 MG/NS 50 ML IVPB (Cancer Ctr) IV SCH; +PALONOSETRON HCL 0.25 MG, DEXAMETHASONE INJECTION 10 MG in NS (IVPB) CANCER CENTER 50 ML IV SCH; +PEGFILGRASTIM 6 MG/0.6ML NEULASTA SC SCH; +POLY17PO6 PO; +RITUXIMAB FOR IV SCH; +RITUXIMAB IV SCH; +[UNRECOGNIZED DRUG - OTHER] IV SCH; +diphenhydrAMINE 25 MG TAB (BENADRYL) CANCER CENTER PO ONE; +diphenhydrAMINE 25 MG TAB (BENADRYL) CANCER CENTER PO SCH; +diphenhydrAMINE 50 MG/ML INJ (CANCER CENTER) ONE; +riTUXimab 500 MG, riTUXimab FOR IV INJ CONC 100 MG in NS (IVPB) CANCER CENTER ONLY 150 ML IV SCH; +vinCRIStine SULFATE 1 MG in NS (IVPB) CANCER CENTER 50 ML IV SCH
[2019-06-21 10:25] LABS: BASOPHILS # (AUTO) 0.1 10^3/uL (0.0-0.1); BASOPHILS % (AUTO) 1 % (0-10); EOSINOPHILS % (AUTO) 0 % (0-10); HEMATOCRIT 40 % (35-52); HEMOGLOBIN 13.1 G/DL (11.5-16.0); LYMPHOCYTES # (AUTO) 0.3 X 10^3 (1.0-4.0); LYMPHOCYTES % (AUTO) 4 % (12-44); MEAN CORPUSCULAR HEMOGLOBIN 29 PG (25-34); MEAN CORPUSCULAR HGB CONC 33 G/DL (32-36); MEAN CORPUSCULAR VOLUME 90 FL (80-99); MEAN PLATELET VOLUME 9.6 FL (7.4-10.4); MONOCYTES # (AUTO) 0.6 X 10^3 (0.0-1.0); MONOCYTES % (AUTO) 7 % (0-12); NEUTROPHILS # (AUTO) 7.2 X 10^3 (1.8-7.8); NEUTROPHILS % (AUTO) 88 % (42-75); PLATELET COUNT 278 10^3/uL (130-400); RED CELL DISTRIBUTION WIDTH 18.7 % (10.0-14.5); WHITE BLOOD COUNT 8.2 10^3/uL (4.3-11.0)
[2019-06-21 10:34] LABS: CHLORIDE 96 MMOL/L (98-107); POTASSIUM 4.1 MMOL/L (3.6-5.0); SODIUM 134 MMOL/L (135-145)
[2019-06-21 10:36] LABS: GLUCOSE 131 MG/DL (70-105)
[2019-06-21 10:37] LABS: CARBON DIOXIDE 25 MMOL/L (21-32)
[2019-06-21 10:40] LABS: GFR ESTIMATED > 60
[2019-06-21 10:41] LABS: BUN/CREATININE RATIO 18
== END 2019-06-27 09:43 | disposition home or self-care (01) ==
LOC: ONC 10:08
PROVIDERS: ATTEND Internal Medicine Hematology & Oncology
DX: Z51.11 Encounter for antineoplastic chemotherapy (principal); Z51.0 Encounter for antineoplastic radiation therapy; C85.90 Non-Hodgkin lymphoma, unspecified, unspecified site
CPT/HCPCS: 36591; 77290; 77295; 77300; 77332; 77334; 77336; 77402; 77417; 80048; 80053; 80074; 83615; 83735; 84550; 85025; 96367; 96372; 96374; 96375; 96411; 96413; 96415; 96417; 99204; J9312

== ENCOUNTER → 2019-06-25 | Outpatient (CLI) | payer MEDICARE, OTHER ==
[~2019-06-25] MED LIST changes: -ACETAMINOPHEN 325 MG TAB (TYLENOL) CANCER CTR ONE; -ACETAMINOPHEN 325 MG TAB (TYLENOL) CANCER CTR PO PRN; -ACETAMINOPHEN 500 MG TAB (TYLENOL) CANCER CTR ONE; +CATHETER FLUSH 10 ML SYR IV PRN; -CYCLOPHOSPHAMIDE IV SCH; -DOXORUBICIN HCL IV SCH; -FOSAPREPITANT DIMEGLUMINE 150 MG in NS (IVPB) CANCER CENTER ONLY 150 ML IV SCH; +HOLD METFORMIN - RECEIVED CONTRAST 20 ML VIAL IV SCH; +IOHEXOL 350 MG/ML 100 ML (OMNIPAQUE 350) VIAL IV ONE; -MEPERIDINE (DEMEROL) INJ 50 MG/ML CANCER CTR IV PRN; +NS 100 ML (IVPB) BAG IV ONE; -NS IV 1000 ML (CANCER CTR) IV SCH; -NS IV SCH; -ONDANSETRON 8 MG, DEXAMETHASONE 4 MG/NS 50 ML IVPB (Cancer Ctr) IV SCH; -PALONOSETRON HCL 0.25 MG, DEXAMETHASONE INJECTION 10 MG in NS (IVPB) CANCER CENTER 50 ML IV SCH; -PEGFILGRASTIM 6 MG/0.6ML NEULASTA SC SCH; -RITUXIMAB FOR IV SCH; -RITUXIMAB IV SCH; -[UNRECOGNIZED DRUG - OTHER] IV SCH; -diphenhydrAMINE 25 MG TAB (BENADRYL) CANCER CENTER PO ONE; -diphenhydrAMINE 25 MG TAB (BENADRYL) CANCER CENTER PO SCH; -diphenhydrAMINE 50 MG/ML INJ (CANCER CENTER) ONE; -riTUXimab 500 MG, riTUXimab FOR IV INJ CONC 100 MG in NS (IVPB) CANCER CENTER ONLY 150 ML IV SCH; -vinCRIStine SULFATE 1 MG in NS (IVPB) CANCER CENTER 50 ML IV SCH
--- NOTE | 2019-06-25 14:22 | Diagnostic Imaging Report ---
PROCEDURE: CT chest, abdomen, and pelvis with contrast. TECHNIQUE: Multiple contiguous axial images were obtained through the chest, abdomen, and pelvis after the administration of intravenous contrast. Auto Exposure Controls were utilized during the CT exam to meet ALARA standards for radiation dose reduction. INDICATION: Follicular lymphoma. COMPARISON: 06/16/2019, 04/10/2019, 03/09/2019, and 02/23/2019. FINDINGS: A left-sided Port-A-Cath is in place with the distal tip terminating within the lower aspect of the superior vena cava. No new adenopathy within the chest. No aneurysmal dilatation of the thoracic aorta. The heart is within normal limits in size. No significant pericardial effusion. Small bilateral pleural effusions are present, improved from recent imaging. No pneumothorax. The previously noted nodular density within the right upper lobe appears significantly improved from the prior examination with mild persisting groundglass and reticular opacities remaining within this region. Mild bilateral dependent atelectasis. The lungs otherwise appear clear. The trachea is patent. Healing sternal fracture. Healing right-sided rib fractures. Left total shoulder arthroplasty. Severe compression deformity of T10 is identified with associated retropulsion. This has significantly progressed since prior imaging from February 2019. Developing sclerosis is identified within T4. The liver and spleen are unremarkable. The adrenal glands are unremarkable. The pancreas is unremarkable. The kidneys are unremarkable for age. No intra or extrahepatic biliary dilatation. Soft tissue density within the kartik hepatis and aortocaval regions appears improved from prior imaging. No new adenopathy. The urinary bladder is unremarkable. The uterus is not visualized, likely surgically absent. No abnormal adnexal mass lesion. No bowel obstruction or pneumatosis. No free air or free fluid. Grade 1 anterolisthesis of L3 on L4 and L4 on L5 with associated relatively high-grade central canal stenosis. Chronic left pubic rami fractures. Scattered osseous degenerative changes. IMPRESSION: The previously noted right upper lobe pulmonary nodule has significantly improved and nearly resolved. Severe compression deformity of T10 with associated retropulsion and central canal stenosis. This has significantly progressed since the prior examination in February 2019. Given its prior appearance, this is likely a pathologic compression deformity. Upper abdominal adenopathy, appearing stable to slightly improved from the prior exams without new adenopathy. Improved though persistent small bilateral pleural effusions. Increasing sclerosis within T4, likely related to a healing metastatic lesion. Healing sternal fracture. Additional findings as above. Dictated by: Dictated on workstation # [id number]
== END ==
LOC: RAD 13:05
PROVIDERS: ATTEND Internal Medicine Hematology & Oncology
DX: C82.49 Follicular lymphoma grade IIIb, extranodal and solid organ sites (principal); J90 Pleural effusion, not elsewhere classified; M48.04 Spinal stenosis, thoracic region; S22.20XD Unspecified fracture of sternum, subsequent encounter for fracture with routine healing; M84.48XD Pathological fracture, other site, subsequent encounter for fracture with routine healing
CPT/HCPCS: 71260; 74177

== ENCOUNTER 2019-08-02 10:58 | Outpatient (RCR) | payer MEDICARE, OTHER ==
[2019-06-28 10:47] LABS: BASOPHILS % (AUTO) 0 % (0-10); EOSINOPHILS % (AUTO) 0 % (0-10); HEMATOCRIT 40 % (35-52); LYMPHOCYTES # (AUTO) 0.1 X 10^3 (1.0-4.0); LYMPHOCYTES % (AUTO) 2 % (12-44); MEAN CORPUSCULAR HEMOGLOBIN 30 PG (25-34); MEAN CORPUSCULAR HGB CONC 32 G/DL (32-36); MEAN CORPUSCULAR VOLUME 94 FL (80-99); MEAN PLATELET VOLUME 9.4 FL (7.4-10.4); MONOCYTES # (AUTO) 0.2 X 10^3 (0.0-1.0); MONOCYTES % (AUTO) 3 % (0-12); NEUTROPHILS # (AUTO) 8.4 X 10^3 (1.8-7.8); NEUTROPHILS % (AUTO) 96 % (42-75); PLATELET COUNT 264 10^3/uL (130-400); RED CELL DISTRIBUTION WIDTH 19.2 % (10.0-14.5); WHITE BLOOD COUNT 8.8 10^3/uL (4.3-11.0)
[2019-06-28 11:03] LABS: ALANINE AMINOTRANSFERASE 12 U/L (0-55); ALKALINE PHOSPHATASE 94 U/L (40-136); BILIRUBIN,TOTAL 0.6 MG/DL (0.1-1.0); BUN/CREATININE RATIO 27; CARBON DIOXIDE 24 MMOL/L (21-32); CHLORIDE 102 MMOL/L (98-107); GFR ESTIMATED > 60; GLUCOSE 126 MG/DL (70-105); MAGNESIUM 2.2 MG/DL (1.6-2.4); SODIUM 136 MMOL/L (135-145); TOTAL PROTEIN 6.4 GM/DL (6.4-8.2)
[2019-07-05 11:32] LABS: BASOPHILS % (AUTO) 1 % (0-10); EOSINOPHILS % (AUTO) 1 % (0-10); HEMATOCRIT 40 % (35-52); HEMOGLOBIN 12.9 G/DL (11.5-16.0); LYMPHOCYTES # (AUTO) 0.3 X 10^3 (1.0-4.0); LYMPHOCYTES % (AUTO) 13 % (12-44); MEAN CORPUSCULAR HEMOGLOBIN 30 PG (25-34); MEAN CORPUSCULAR HGB CONC 32 G/DL (32-36); MEAN CORPUSCULAR VOLUME 94 FL (80-99); MONOCYTES # (AUTO) 0.5 X 10^3 (0.0-1.0); MONOCYTES % (AUTO) 23 % (0-12); NEUTROPHILS # (AUTO) 1.3 X 10^3 (1.8-7.8); NEUTROPHILS % (AUTO) 63 % (42-75); PLATELET COUNT 154 10^3/uL (130-400); RED CELL DISTRIBUTION WIDTH 17.8 % (10.0-14.5)
[2019-07-05 11:47] LABS: BUN/CREATININE RATIO 18; CALCIUM 9.2 MG/DL (8.5-10.1); CARBON DIOXIDE 29 MMOL/L (21-32); CHLORIDE 95 MMOL/L (98-107); CREATININE SERUM 0.79 MG/DL (0.60-1.30); GFR ESTIMATED > 60; GLUCOSE 140 MG/DL (70-105); POTASSIUM 4.2 MMOL/L (3.6-5.0); SODIUM 134 MMOL/L (135-145)
[2019-07-12 10:54] LABS: BASOPHILS # (AUTO) 0.1 10^3/uL (0.0-0.1); BASOPHILS % (AUTO) 1 % (0-10); EOSINOPHILS % (AUTO) 0 % (0-10); HEMATOCRIT 42 % (35-52); HEMOGLOBIN 13.7 G/DL (11.5-16.0); LYMPHOCYTES # (AUTO) 0.5 X 10^3 (1.0-4.0); LYMPHOCYTES % (AUTO) 5 % (12-44); MEAN CORPUSCULAR HEMOGLOBIN 31 PG (25-34); MEAN CORPUSCULAR HGB CONC 33 G/DL (32-36); MEAN CORPUSCULAR VOLUME 95 FL (80-99); MEAN PLATELET VOLUME 9.2 FL (7.4-10.4); MONOCYTES # (AUTO) 0.5 X 10^3 (0.0-1.0); MONOCYTES % (AUTO) 5 % (0-12); NEUTROPHILS # (AUTO) 8.8 X 10^3 (1.8-7.8); NEUTROPHILS % (AUTO) 89 % (42-75); PLATELET COUNT 237 10^3/uL (130-400); RED CELL DISTRIBUTION WIDTH 18.1 % (10.0-14.5); WHITE BLOOD COUNT 9.9 10^3/uL (4.3-11.0)
[2019-07-12 11:23] LABS: BUN/CREATININE RATIO 16; CALCIUM 9.3 MG/DL (8.5-10.1); CARBON DIOXIDE 21 MMOL/L (21-32); CHLORIDE 100 MMOL/L (98-107); CREATININE SERUM 0.79 MG/DL (0.60-1.30); GFR ESTIMATED > 60; GLUCOSE 144 MG/DL (70-105); POTASSIUM 4.1 MMOL/L (3.6-5.0); SODIUM 136 MMOL/L (135-145)
[2019-07-19 10:27] LABS: BASOPHILS % (AUTO) 0 % (0-10); EOSINOPHILS % (AUTO) 0 % (0-10); HEMATOCRIT 40 % (35-52); HEMOGLOBIN 13.4 G/DL (11.5-16.0); LYMPHOCYTES # (AUTO) 0.2 X 10^3 (1.0-4.0); LYMPHOCYTES % (AUTO) 3 % (12-44); MEAN CORPUSCULAR HEMOGLOBIN 32 PG (25-34); MEAN CORPUSCULAR HGB CONC 34 G/DL (32-36); MEAN CORPUSCULAR VOLUME 95 FL (80-99); MEAN PLATELET VOLUME 9.6 FL (7.4-10.4); MONOCYTES # (AUTO) 0.2 X 10^3 (0.0-1.0); MONOCYTES % (AUTO) 2 % (0-12); NEUTROPHILS # (AUTO) 8.5 X 10^3 (1.8-7.8); NEUTROPHILS % (AUTO) 95 % (42-75); PLATELET COUNT 234 10^3/uL (130-400); RED CELL DISTRIBUTION WIDTH 17.2 % (10.0-14.5)
[2019-07-19 10:45] LABS: ALANINE AMINOTRANSFERASE 10 U/L (0-55); ALBUMIN 4.1 GM/DL (3.2-4.5); ALKALINE PHOSPHATASE 86 U/L (40-136); BILIRUBIN,TOTAL 0.6 MG/DL (0.1-1.0); BUN/CREATININE RATIO 26; CALCIUM 9.2 MG/DL (8.5-10.1); CARBON DIOXIDE 24 MMOL/L (21-32); CHLORIDE 100 MMOL/L (98-107); CREATININE SERUM 0.74 MG/DL (0.60-1.30); GFR ESTIMATED > 60; GLUCOSE 117 MG/DL (70-105); POTASSIUM 4.3 MMOL/L (3.6-5.0); SODIUM 135 MMOL/L (135-145); TOTAL PROTEIN 6.4 GM/DL (6.4-8.2)
[2019-07-26 11:22] LABS: BASOPHILS % (AUTO) 1 % (0-10); EOSINOPHILS # (AUTO) 0.1 10^3/uL (0.0-0.3); EOSINOPHILS % (AUTO) 3 % (0-10); HEMATOCRIT 41 % (35-52); HEMOGLOBIN 13.7 G/DL (11.5-16.0); LYMPHOCYTES # (AUTO) 0.4 X 10^3 (1.0-4.0); LYMPHOCYTES % (AUTO) 14 % (12-44); MEAN CORPUSCULAR HEMOGLOBIN 32 PG (25-34); MEAN CORPUSCULAR HGB CONC 33 G/DL (32-36); MEAN CORPUSCULAR VOLUME 96 FL (80-99); MEAN PLATELET VOLUME 10.2 FL (7.4-10.4); MONOCYTES # (AUTO) 0.5 X 10^3 (0.0-1.0); MONOCYTES % (AUTO) 17 % (0-12); NEUTROPHILS % (AUTO) 65 % (42-75); PLATELET COUNT 167 10^3/uL (130-400); RED CELL DISTRIBUTION WIDTH 16.6 % (10.0-14.5); WHITE BLOOD COUNT 3.1 10^3/uL (4.3-11.0)
[2019-07-26 11:41] LABS: BUN/CREATININE RATIO 19; CALCIUM 9.2 MG/DL (8.5-10.1); CARBON DIOXIDE 30 MMOL/L (21-32); CHLORIDE 98 MMOL/L (98-107); CREATININE SERUM 0.75 MG/DL (0.60-1.30); GFR ESTIMATED > 60; GLUCOSE 94 MG/DL (70-105); POTASSIUM 3.8 MMOL/L (3.6-5.0); SODIUM 136 MMOL/L (135-145)
[~2019-08-02 10:58] MED LIST changes: +ACETAMINOPHEN 325 MG TAB (TYLENOL) CANCER CTR PO PRN; -CATHETER FLUSH 10 ML SYR IV PRN; +CYCLOPHOSPHAMIDE IV SCH; +DOXORUBICIN HCL IV SCH; +FOSAPREPITANT DIMEGLUMINE 150 MG in NS (IVPB) CANCER CENTER ONLY 150 ML IV SCH; -HOLD METFORMIN - RECEIVED CONTRAST 20 ML VIAL IV SCH; -IOHEXOL 350 MG/ML 100 ML (OMNIPAQUE 350) VIAL IV ONE; +MEPERIDINE (DEMEROL) INJ 50 MG/ML CANCER CTR IV PRN; -NS 100 ML (IVPB) BAG IV ONE; +NS IV 1000 ML (CANCER CTR) IV SCH; +NS IV SCH; +PALONOSETRON HCL 0.25 MG, DEXAMETHASONE INJECTION 10 MG in NS (IVPB) CANCER CENTER 50 ML IV SCH; +PEGFILGRASTIM 6 MG/0.6ML NEULASTA SC SCH; +RITUXIMAB FOR IV SCH; +RITUXIMAB IV SCH; +[UNRECOGNIZED DRUG - OTHER] IV SCH; +diphenhydrAMINE 25 MG TAB (BENADRYL) CANCER CENTER PO SCH; +vinCRIStine SULFATE 1 MG in NS (IVPB) CANCER CENTER 50 ML IV SCH
[2019-08-02 11:15] LABS: BASOPHILS # (AUTO) 0.1 10^3/uL (0.0-0.1); BASOPHILS % (AUTO) 1 % (0-10); EOSINOPHILS % (AUTO) 0 % (0-10); HEMATOCRIT 40 % (35-52); HEMOGLOBIN 13.1 G/DL (11.5-16.0); LYMPHOCYTES # (AUTO) 0.4 X 10^3 (1.0-4.0); LYMPHOCYTES % (AUTO) 4 % (12-44); MEAN CORPUSCULAR HEMOGLOBIN 32 PG (25-34); MEAN CORPUSCULAR HGB CONC 33 G/DL (32-36); MEAN CORPUSCULAR VOLUME 97 FL (80-99); MEAN PLATELET VOLUME 9.2 FL (7.4-10.4); MONOCYTES # (AUTO) 0.6 X 10^3 (0.0-1.0); MONOCYTES % (AUTO) 6 % (0-12); NEUTROPHILS # (AUTO) 7.7 X 10^3 (1.8-7.8); NEUTROPHILS % (AUTO) 88 % (42-75); PLATELET COUNT 225 10^3/uL (130-400); RED CELL DISTRIBUTION WIDTH 17.1 % (10.0-14.5); WHITE BLOOD COUNT 8.7 10^3/uL (4.3-11.0)
[2019-08-02 11:28] LABS: BUN/CREATININE RATIO 29; CALCIUM 8.9 MG/DL (8.5-10.1); CARBON DIOXIDE 27 MMOL/L (21-32); CHLORIDE 102 MMOL/L (98-107); CREATININE SERUM 0.77 MG/DL (0.60-1.30); GFR ESTIMATED > 60; GLUCOSE 156 MG/DL (70-105); POTASSIUM 3.9 MMOL/L (3.6-5.0); SODIUM 139 MMOL/L (135-145)
== END 2019-08-08 11:42 | disposition home or self-care (01) ==
LOC: ONC 10:58
PROVIDERS: ATTEND Internal Medicine Hematology & Oncology
DX: Z51.11 Encounter for antineoplastic chemotherapy (principal); C85.90 Non-Hodgkin lymphoma, unspecified, unspecified site; M48.54XA Collapsed vertebra, not elsewhere classified, thoracic region, initial encounter for fracture; M48.04 Spinal stenosis, thoracic region; J90 Pleural effusion, not elsewhere classified; G95.89 Other specified diseases of spinal cord; S22.20XD Unspecified fracture of sternum, subsequent encounter for fracture with routine healing; R91.1 Solitary pulmonary nodule; R16.1 Splenomegaly, not elsewhere classified; R59.1 Generalized enlarged lymph nodes
CPT/HCPCS: 36591; 80048; 80053; 83735; 85025; 96367; 96372; 96375; 96409; 96411; 96413; 96417; J9312

== ENCOUNTER → 2019-08-28 | Outpatient (CLI) | payer MEDICARE, OTHER ==
[~2019-08-28] MED LIST changes: -ACETAMINOPHEN 325 MG TAB (TYLENOL) CANCER CTR PO PRN; -CYCLOPHOSPHAMIDE IV SCH; -DOXORUBICIN HCL IV SCH; -FOSAPREPITANT DIMEGLUMINE 150 MG in NS (IVPB) CANCER CENTER ONLY 150 ML IV SCH; -MEPERIDINE (DEMEROL) INJ 50 MG/ML CANCER CTR IV PRN; -NS IV 1000 ML (CANCER CTR) IV SCH; -NS IV SCH; -PALONOSETRON HCL 0.25 MG, DEXAMETHASONE INJECTION 10 MG in NS (IVPB) CANCER CENTER 50 ML IV SCH; -PEGFILGRASTIM 6 MG/0.6ML NEULASTA SC SCH; -RITUXIMAB FOR IV SCH; -RITUXIMAB IV SCH; -[UNRECOGNIZED DRUG - OTHER] IV SCH; -diphenhydrAMINE 25 MG TAB (BENADRYL) CANCER CENTER PO SCH; -vinCRIStine SULFATE 1 MG in NS (IVPB) CANCER CENTER 50 ML IV SCH
--- NOTE | 2019-08-28 13:28 | Diagnostic Imaging Report ---
INDICATION: Follicular lymphoma with subsequent treatment strategy and assess treatment response. TECHNIQUE: Serum blood glucose level at the time of injection is 141 mg/dL. Patient was administered 45 mCi F-18 FDG intravenously in the left forearm and PET imaging was performed from the top of skull to mid thighs. Noncontrast CT was also performed for attenuation correction and anatomic correlation. COMPARISON: Correlation is made with prior PET/CT study from 04/10/[address] chest, abdomen and pelvis from 06/25/2019. FINDINGS: There is symmetric activity throughout the brain. Soft tissues of the neck are unremarkable. No mediastinal or hilar hypermetabolism is seen. No pulmonary parenchymal hypermetabolism is identified. Abdomen and pelvis demonstrate physiologic activity within the gastrointestinal and genitourinary tracts. Previously PET scan did show a numerous areas of hypermetabolism. In particular, there was some upper abdominal hypermetabolic lymphadenopathy. This is no longer visualized. The focus between the spleen and stomach is no longer visualized. Multiple osseous uptake in particularly left scapula as well as the sternum as well as upper and lower thoracic vertebrae no longer demonstrate hypermetabolic activity. No inguinal or iliac hypermetabolic lymphadenopathy is seen. The previously noted bilateral pleural effusions have significantly improved. No pleural fluid on the right is seen and only trace pleural fluid on the left is seen. IMPRESSION: Significant response to therapy when compared with prior PET/CT study from 04/10/2019. No abnormal regions of hypermetabolism are identified on today's exam. Previously noted pleural effusions have nearly completely resolved. Dictated by: Dictated on workstation # [id number]
== END ==
LOC: RAD 09:16
PROVIDERS: ATTEND Internal Medicine Hematology & Oncology
DX: C82.49 Follicular lymphoma grade IIIb, extranodal and solid organ sites (principal)
CPT/HCPCS: 78815; A9552

== ENCOUNTER → 2019-11-07 | Outpatient (RCR) | payer MEDICARE, OTHER ==
[2019-08-09 10:39] LABS: BASOPHILS % (AUTO) 0 % (0-10); EOSINOPHILS % (AUTO) 0 % (0-10); HEMATOCRIT 40 % (35-52); HEMOGLOBIN 13.4 G/DL (11.5-16.0); LYMPHOCYTES # (AUTO) 0.2 X 10^3 (1.0-4.0); LYMPHOCYTES % (AUTO) 2 % (12-44); MEAN CORPUSCULAR HEMOGLOBIN 32 PG (25-34); MEAN CORPUSCULAR HGB CONC 33 G/DL (32-36); MEAN CORPUSCULAR VOLUME 97 FL (80-99); MEAN PLATELET VOLUME 9.4 FL (7.4-10.4); MONOCYTES # (AUTO) 0.2 X 10^3 (0.0-1.0); MONOCYTES % (AUTO) 2 % (0-12); NEUTROPHILS # (AUTO) 8.7 X 10^3 (1.8-7.8); NEUTROPHILS % (AUTO) 95 % (42-75); PLATELET COUNT 231 10^3/uL (130-400); RED CELL DISTRIBUTION WIDTH 16.7 % (10.0-14.5); WHITE BLOOD COUNT 9.2 10^3/uL (4.3-11.0)
[2019-08-09 11:01] LABS: CARBON DIOXIDE 27 MMOL/L (21-32); CHLORIDE 101 MMOL/L (98-107); CREATININE SERUM 0.71 MG/DL (0.60-1.30); POTASSIUM 4.6 MMOL/L (3.6-5.0); SODIUM 136 MMOL/L (135-145)
[2019-08-09 11:02] LABS: ALANINE AMINOTRANSFERASE 11 U/L (0-55); ALBUMIN 3.9 GM/DL (3.2-4.5); ALKALINE PHOSPHATASE 91 U/L (40-136); BILIRUBIN,TOTAL 0.8 MG/DL (0.1-1.0); BUN/CREATININE RATIO 25; CALCIUM 8.9 MG/DL (8.5-10.1); GFR ESTIMATED > 60; GLUCOSE 108 MG/DL (70-105); TOTAL PROTEIN 6.3 GM/DL (6.4-8.2)
[2019-08-16 10:47] LABS: BASOPHILS # (AUTO) 0.1 10^3/uL (0.0-0.1); BASOPHILS % (AUTO) 1 % (0-10); EOSINOPHILS # (AUTO) 0.1 10^3/uL (0.0-0.3); EOSINOPHILS % (AUTO) 3 % (0-10); HEMATOCRIT 40 % (35-52); HEMOGLOBIN 13.1 G/DL (11.5-16.0); LYMPHOCYTES # (AUTO) 0.5 X 10^3 (1.0-4.0); LYMPHOCYTES % (AUTO) 12 % (12-44); MEAN CORPUSCULAR HEMOGLOBIN 32 PG (25-34); MEAN CORPUSCULAR HGB CONC 33 G/DL (32-36); MEAN CORPUSCULAR VOLUME 98 FL (80-99); MONOCYTES # (AUTO) 0.7 X 10^3 (0.0-1.0); MONOCYTES % (AUTO) 19 % (0-12); NEUTROPHILS # (AUTO) 2.5 X 10^3 (1.8-7.8); NEUTROPHILS % (AUTO) 65 % (42-75); PLATELET COUNT 157 10^3/uL (130-400); RED CELL DISTRIBUTION WIDTH 16.3 % (10.0-14.5); WHITE BLOOD COUNT 3.9 10^3/uL (4.3-11.0)
[2019-08-16 11:06] LABS: BUN/CREATININE RATIO 28; CARBON DIOXIDE 33 MMOL/L (21-32); CHLORIDE 99 MMOL/L (98-107); CREATININE SERUM 0.67 MG/DL (0.60-1.30); GFR ESTIMATED > 60; GLUCOSE 85 MG/DL (70-105); POTASSIUM 4.3 MMOL/L (3.6-5.0); SODIUM 138 MMOL/L (135-145)
[2019-08-23 10:56] LABS: BASOPHILS # (AUTO) 0.1 10^3/uL (0.0-0.1); BASOPHILS % (AUTO) 1 % (0-10); EOSINOPHILS % (AUTO) 0 % (0-10); HEMATOCRIT 40 % (35-52); HEMOGLOBIN 13.7 G/DL (11.5-16.0); LYMPHOCYTES # (AUTO) 0.5 X 10^3 (1.0-4.0); LYMPHOCYTES % (AUTO) 5 % (12-44); MEAN CORPUSCULAR HEMOGLOBIN 33 PG (25-34); MEAN CORPUSCULAR HGB CONC 34 G/DL (32-36); MEAN CORPUSCULAR VOLUME 96 FL (80-99); MEAN PLATELET VOLUME 9.5 FL (7.4-10.4); MONOCYTES # (AUTO) 0.4 X 10^3 (0.0-1.0); MONOCYTES % (AUTO) 5 % (0-12); NEUTROPHILS % (AUTO) 89 % (42-75); PLATELET COUNT 226 10^3/uL (130-400); RED CELL DISTRIBUTION WIDTH 16.2 % (10.0-14.5)
[2019-08-23 11:16] LABS: BUN/CREATININE RATIO 27; CALCIUM 9.2 MG/DL (8.5-10.1); CARBON DIOXIDE 26 MMOL/L (21-32); CHLORIDE 102 MMOL/L (98-107); CREATININE SERUM 0.79 MG/DL (0.60-1.30); GFR ESTIMATED > 60; GLUCOSE 114 MG/DL (70-105); POTASSIUM 4.3 MMOL/L (3.6-5.0); SODIUM 140 MMOL/L (135-145)
[~2019-11-07] MED LIST changes: +ACETAMINOPHEN 325 MG TAB (TYLENOL) CANCER CTR PO PRN; +CYCLOPHOSPHAMIDE IV SCH; +DOXORUBICIN HCL IV SCH; +FOSAPREPITANT (CANCER CENTER) 150 MG in NS (IVPB) CANCER CENTER ONLY 150 ML IV SCH; +MEPERIDINE (DEMEROL) INJ 50 MG/ML CANCER CTR IV PRN; +NS IV 1000 ML (CANCER CTR) IV SCH; +NS IV SCH; +PEGFILGRASTIM 6 MG/0.6ML NEULASTA SC SCH; +RITUXIMAB FOR IV SCH; +RITUXIMAB IV SCH; +[UNRECOGNIZED DRUG - OTHER] IV SCH; +diphenhydrAMINE 25 MG TAB (BENADRYL) CANCER CENTER PO SCH; +vinCRIStine SULFATE 1 MG in NS (IVPB) CANCER CENTER 50 ML IV SCH
[2019-11-07 14:30] LABS: BASOPHILS # (AUTO) 0.1 10^3/uL (0.0-0.1); BASOPHILS % (AUTO) 1 % (0-10); EOSINOPHILS # (AUTO) 0.1 10^3/uL (0.0-0.3); EOSINOPHILS % (AUTO) 1 % (0-10); HEMATOCRIT 44 % (35-52); HEMOGLOBIN 14.6 G/DL (11.5-16.0); LYMPHOCYTES # (AUTO) 0.6 X 10^3 (1.0-4.0); LYMPHOCYTES % (AUTO) 15 % (12-44); MEAN CORPUSCULAR HEMOGLOBIN 32 PG (25-34); MEAN CORPUSCULAR HGB CONC 33 G/DL (32-36); MEAN CORPUSCULAR VOLUME 97 FL (80-99); MEAN PLATELET VOLUME 9.8 FL (7.4-10.4); MONOCYTES # (AUTO) 0.3 X 10^3 (0.0-1.0); MONOCYTES % (AUTO) 7 % (0-12); NEUTROPHILS # (AUTO) 3.2 X 10^3 (1.8-7.8); NEUTROPHILS % (AUTO) 75 % (42-75); PLATELET COUNT 245 10^3/uL (130-400); RED CELL DISTRIBUTION WIDTH 13.2 % (10.0-14.5); WHITE BLOOD COUNT 4.2 10^3/uL (4.3-11.0)
[2019-11-07 14:49] LABS: BILIRUBIN,TOTAL 0.5 MG/DL (0.1-1.0); CALCIUM 9.4 MG/DL (8.5-10.1); CREATININE SERUM 1.02 MG/DL (0.60-1.30); POTASSIUM 4.4 MMOL/L (3.6-5.0); TOTAL PROTEIN 6.4 GM/DL (6.4-8.2)
== END | disposition home or self-care (01) ==
LOC: ONC 08-09 10:24
PROVIDERS: ATTEND Internal Medicine Hematology & Oncology
DX: Z51.11 Encounter for antineoplastic chemotherapy (principal); C82.49 Follicular lymphoma grade IIIb, extranodal and solid organ sites
CPT/HCPCS: 80053; 85025; 96367; 96375; 96411; 96413; 96417; G0463; 36591; 80048; 96372; 99213; J9312

== ENCOUNTER 2020-01-30 14:01 | Outpatient (RCR) | payer MEDICARE, OTHER ==
[~2020-01-30 14:01] MED LIST changes: -ACETAMINOPHEN 325 MG TAB (TYLENOL) CANCER CTR PO PRN; -CYCLOPHOSPHAMIDE IV SCH; -DOXORUBICIN HCL IV SCH; -FOSAPREPITANT (CANCER CENTER) 150 MG in NS (IVPB) CANCER CENTER ONLY 150 ML IV SCH; -MEPERIDINE (DEMEROL) INJ 50 MG/ML CANCER CTR IV PRN; -NS IV 1000 ML (CANCER CTR) IV SCH; -NS IV SCH; -PEGFILGRASTIM 6 MG/0.6ML NEULASTA SC SCH; -RITUXIMAB FOR IV SCH; -RITUXIMAB IV SCH; -[UNRECOGNIZED DRUG - OTHER] IV SCH; -diphenhydrAMINE 25 MG TAB (BENADRYL) CANCER CENTER PO SCH; -vinCRIStine SULFATE 1 MG in NS (IVPB) CANCER CENTER 50 ML IV SCH
[2020-01-30 14:17] LABS: BASOPHILS # (AUTO) 0.1 10^3/uL (0.0-0.1); BASOPHILS % (AUTO) 2 % (0-10); EOSINOPHILS % (AUTO) 1 % (0-10); HEMATOCRIT 45 % (35-52); HEMOGLOBIN 14.6 g/dL (11.5-16.0); LYMPHOCYTES # (AUTO) 0.7 10^3/uL (1.0-4.0); LYMPHOCYTES % (AUTO) 27 % (12-44); MEAN CORPUSCULAR HEMOGLOBIN 32 pg (25-34); MEAN CORPUSCULAR HGB CONC 33 g/dL (32-36); MEAN CORPUSCULAR VOLUME 97 fL (80-99); MEAN PLATELET VOLUME 9.7 fL (9.0-12.2); MONOCYTES # (AUTO) 0.7 10^3/uL (0.0-1.0); MONOCYTES % (AUTO) 24 % (0-12); NEUTROPHILS # (AUTO) 1.3 10^3/uL (1.8-7.8); NEUTROPHILS % (AUTO) 47 % (42-75); PLATELET COUNT 224 10^3/uL (130-400); WHITE BLOOD COUNT 2.8 10^3/uL (4.3-11.0)
[2020-01-30 14:37] LABS: ALBUMIN 4.1 GM/DL (3.2-4.5); BILIRUBIN,TOTAL 0.5 MG/DL (0.1-1.0); CALCIUM 9.1 MG/DL (8.5-10.1); CREATININE SERUM 0.9 MG/DL (0.60-1.30); TOTAL PROTEIN 6.6 GM/DL (6.4-8.2)
== END 2020-04-11 09:25 | disposition home or self-care (01) ==
LOC: ONC 14:01
PROVIDERS: ATTEND Internal Medicine Hematology & Oncology
DX: C82.49 Follicular lymphoma grade IIIb, extranodal and solid organ sites (principal); E78.00 Pure hypercholesterolemia, unspecified; Z92.21 Personal history of antineoplastic chemotherapy; Z92.3 Personal history of irradiation
CPT/HCPCS: 80053; 85025; G0463

== ENCOUNTER → 2020-04-16 | Outpatient (CLI) | payer MEDICARE, OTHER ==
[~2020-04-16] MED LIST changes: +BARIUM SUSPENSION 2.1% (VANILLA SILQ) 450 ML PO ONE; +CATHETER FLUSH 10 ML SYR IV PRN; +HOLD METFORMIN - RECEIVED CONTRAST 20 ML VIAL IV SCH; +IOHEXOL 350 MG/ML 100 ML (OMNIPAQUE 350) VIAL IV ONE; +NS 100 ML (IVPB) BAG IV ONE
--- NOTE | 2020-04-16 11:42 | Diagnostic Imaging Report ---
PROCEDURE: CT chest, abdomen, and pelvis with contrast. TECHNIQUE: Multiple contiguous axial images were obtained through the chest, abdomen, and pelvis after the administration of intravenous contrast. Auto Exposure Controls were utilized during the CT exam to meet ALARA standards for radiation dose reduction. INDICATION: Follicular lymphoma, followup. Correlation is made with prior CT from 06/25/2019. CT CHEST: A left chest wall port has the tip terminating in the lower SVC. No axillary lymphadenopathy is detected. No definite mediastinal or hilar lymphadenopathy is detected. There appears to be a very small amount of pericardial fluid. No pleural effusion is identified. There is a pleural-based area of nodularity adjacent to the anterior right 3rd rib which appears new since prior exam. This measures approximate 13 mm x 5 mm. There appears to be some pleural nodularity posteriorly in the right mid chest as well, indeterminate. There is some mild pleural thickening left posterior chest. No pleural fluid is seen. A pulmonary parenchymal evaluation shows some infiltrate or atelectasis left lower lobe. No discrete mass is seen. IMPRESSION: No definite thoracic lymphadenopathy is identified. Patient has developed some pleural nodularity bilaterally, concerning but no definite pleural fluid is detected. Close followup is recommended. CT ABDOMEN AND PELVIS: No discrete liver mass is identified. Gallbladder is unremarkable. No biliary duct dilatation. The pancreas and spleen are unremarkable. No adrenal mass is identified. Kidneys are unremarkable. Aorta is non-aneurysmal. No definite adenopathy in the kartik hepatis or central retroperitoneum is identified on today's study. No mesenteric lymphadenopathy is seen. The small and large bowel loops are normal caliber. There are some prominent lymph nodes in the right groin, increased since prior CT. Largest node measures approximately 27 mm in diameter. Left groin is unremarkable. Questionable enlarged lymph nodes in the right iliac location. Bladder is unremarkable. Uterus appears to be surgically absent. The marked compression fracture deformity involving T10 vertebral body is similar to prior exam. IMPRESSION: 1. Upper abdominal adenopathy has improved since prior exam however patient has developed some pelvic lymphadenopathy in the right groin since prior CT from June 2019. There also appears to be some enlarged right iliac nodes. No other significant abnormality in the abdomen or pelvis is identified. Dictated by: Dictated on workstation # [id number]
== END ==
LOC: RAD 10:12
PROVIDERS: ATTEND Internal Medicine Hematology & Oncology
DX: C82.90 Follicular lymphoma, unspecified, unspecified site (principal)
CPT/HCPCS: 71260; 74177

== ENCOUNTER 2020-05-09 10:41 | Outpatient (RCR) | payer MEDICARE, OTHER ==
[2020-04-16 10:08] LABS: BASOPHILS # (AUTO) 0.1 10^3/uL (0.0-0.1); BASOPHILS % (AUTO) 1 % (0-10); EOSINOPHILS % (AUTO) 1 % (0-10); HEMATOCRIT 43 % (35-52); HEMOGLOBIN 14.6 g/dL (11.5-16.0); LYMPHOCYTES # (AUTO) 0.5 10^3/uL (1.0-4.0); LYMPHOCYTES % (AUTO) 9 % (12-44); MEAN CORPUSCULAR HEMOGLOBIN 33 pg (25-34); MEAN CORPUSCULAR HGB CONC 34 g/dL (32-36); MEAN CORPUSCULAR VOLUME 96 fL (80-99); MEAN PLATELET VOLUME 9.5 fL (9.0-12.2); MONOCYTES # (AUTO) 0.4 10^3/uL (0.0-1.0); MONOCYTES % (AUTO) 8 % (0-12); NEUTROPHILS # (AUTO) 4.4 10^3/uL (1.8-7.8); NEUTROPHILS % (AUTO) 82 % (42-75); PLATELET COUNT 221 10^3/uL (130-400); WHITE BLOOD COUNT 5.4 10^3/uL (4.3-11.0)
[2020-04-16 10:28] LABS: ALANINE AMINOTRANSFERASE 16 U/L (0-55); ALBUMIN 3.8 GM/DL (3.2-4.5); ALKALINE PHOSPHATASE 86 U/L (40-136); BILIRUBIN,TOTAL 0.8 MG/DL (0.1-1.0); BUN/CREATININE RATIO 29; CALCIUM 8.8 MG/DL (8.5-10.1); CARBON DIOXIDE 25 MMOL/L (21-32); CHLORIDE 105 MMOL/L (98-107); CREATININE SERUM 0.78 MG/DL (0.60-1.30); GFR ESTIMATED > 60; GLUCOSE 114 MG/DL (70-105); SODIUM 140 MMOL/L (135-145); TOTAL PROTEIN 6.4 GM/DL (6.4-8.2)
[~2020-05-09 10:41] MED LIST changes: -BARIUM SUSPENSION 2.1% (VANILLA SILQ) 450 ML PO ONE; -CATHETER FLUSH 10 ML SYR IV PRN; -HOLD METFORMIN - RECEIVED CONTRAST 20 ML VIAL IV SCH; -IOHEXOL 350 MG/ML 100 ML (OMNIPAQUE 350) VIAL IV ONE; -NS 100 ML (IVPB) BAG IV ONE
== END 2020-07-15 | disposition home or self-care (01) ==
LOC: ONC 10:41
PROVIDERS: ATTEND Internal Medicine Hematology & Oncology
DX: C82.49 Follicular lymphoma grade IIIb, extranodal and solid organ sites (principal); E78.00 Pure hypercholesterolemia, unspecified; Z92.21 Personal history of antineoplastic chemotherapy; Z92.3 Personal history of irradiation
CPT/HCPCS: 36591; 80053; 85025; 99213

== ENCOUNTER 2020-10-30 08:55 | Outpatient (RCR) | payer MEDICARE, OTHER ==
[2020-08-07 10:57] LABS: BASOPHILS # (AUTO) 0.1 10^3/uL (0.0-0.1); BASOPHILS % (AUTO) 1 % (0-10); EOSINOPHILS # (AUTO) 0.1 10^3/uL (0.0-0.3); EOSINOPHILS % (AUTO) 1 % (0-10); HEMATOCRIT 46 % (35-52); LYMPHOCYTES # (AUTO) 0.5 10^3/uL (1.0-4.0); LYMPHOCYTES % (AUTO) 8 % (12-44); MEAN CORPUSCULAR HEMOGLOBIN 31 pg (25-34); MEAN CORPUSCULAR HGB CONC 33 g/dL (32-36); MEAN CORPUSCULAR VOLUME 96 fL (80-99); MEAN PLATELET VOLUME 9.7 fL (9.0-12.2); MONOCYTES # (AUTO) 0.5 10^3/uL (0.0-1.0); MONOCYTES % (AUTO) 9 % (0-12); NEUTROPHILS # (AUTO) 4.8 10^3/uL (1.8-7.8); NEUTROPHILS % (AUTO) 81 % (42-75); PLATELET COUNT 265 10^3/uL (130-400)
[2020-08-07 11:55] LABS: ALBUMIN 3.9 GM/DL (3.2-4.5); BILIRUBIN,TOTAL 0.8 MG/DL (0.1-1.0); CALCIUM 9.4 MG/DL (8.5-10.1); CREATININE SERUM 0.91 MG/DL (0.60-1.30); POTASSIUM 4.4 MMOL/L (3.6-5.0); TOTAL PROTEIN 6.5 GM/DL (6.4-8.2)
[~2020-10-30 08:55] MED LIST changes: -BARIUM SUSPENSION 2.1% (VANILLA SILQ) 450 ML PO ONE; -CATHETER FLUSH 10 ML SYR IV PRN; -HOLD METFORMIN - RECEIVED CONTRAST 20 ML VIAL IV SCH; -IOHEXOL 350 MG/ML 100 ML (OMNIPAQUE 350) VIAL IV ONE; -NS 100 ML (IVPB) BAG IV ONE
[2020-10-30 09:16] LABS: BASOPHILS # (AUTO) 0.1 10^3/uL (0.0-0.1); BASOPHILS % (AUTO) 1 % (0-10); EOSINOPHILS # (AUTO) 0.1 10^3/uL (0.0-0.3); EOSINOPHILS % (AUTO) 2 % (0-10); HEMATOCRIT 42 % (35-52); HEMOGLOBIN 13.9 g/dL (11.5-16.0); LYMPHOCYTES # (AUTO) 0.4 10^3/uL (1.0-4.0); LYMPHOCYTES % (AUTO) 5 % (12-44); MEAN CORPUSCULAR HEMOGLOBIN 31 pg (25-34); MEAN CORPUSCULAR HGB CONC 33 g/dL (32-36); MEAN CORPUSCULAR VOLUME 94 fL (80-99); MEAN PLATELET VOLUME 9.6 fL (9.0-12.2); MONOCYTES # (AUTO) 0.7 10^3/uL (0.0-1.0); MONOCYTES % (AUTO) 10 % (0-12); NEUTROPHILS # (AUTO) 6.2 10^3/uL (1.8-7.8); NEUTROPHILS % (AUTO) 83 % (42-75); PLATELET COUNT 257 10^3/uL (130-400); WHITE BLOOD COUNT 7.5 10^3/uL (4.3-11.0)
[2020-10-30 09:40] LABS: ALBUMIN 3.5 GM/DL (3.2-4.5); BILIRUBIN,TOTAL 0.7 MG/DL (0.1-1.0); CALCIUM 9.2 MG/DL (8.5-10.1); CREATININE SERUM 0.81 MG/DL (0.60-1.30); TOTAL PROTEIN 6.3 GM/DL (6.4-8.2)
== END 2020-11-05 | disposition home or self-care (01) ==
LOC: ONC 08:55
PROVIDERS: ATTEND Internal Medicine Hematology & Oncology
DX: Z45.2 Encounter for adjustment and management of vascular access device (principal); C82.49 Follicular lymphoma grade IIIb, extranodal and solid organ sites; E78.00 Pure hypercholesterolemia, unspecified; M48.04 Spinal stenosis, thoracic region; Z92.21 Personal history of antineoplastic chemotherapy; Z92.3 Personal history of irradiation; Z79.899 Other long term (current) drug therapy
CPT/HCPCS: 80053; 83615; 85025; G0463; 36591

== ENCOUNTER → 2020-10-30 | Outpatient (CLI) | payer MEDICARE, OTHER ==
[~2020-10-30] MED LIST changes: +BARIUM SUSPENSION 2.1% (VANILLA SILQ) 450 ML PO ONE; +CATHETER FLUSH 10 ML SYR IV PRN; +HOLD METFORMIN - RECEIVED CONTRAST 20 ML VIAL IV SCH; +IOHEXOL 350 MG/ML 100 ML (OMNIPAQUE 350) VIAL IV ONE; +NS 100 ML (IVPB) BAG IV ONE
--- NOTE | 2020-10-30 11:08 | Diagnostic Imaging Report ---
PROCEDURE: CT chest, abdomen, and pelvis with contrast. TECHNIQUE: Multiple contiguous axial images were obtained through the chest, abdomen, and pelvis after the administration of intravenous contrast. Auto Exposure Controls were utilized during the CT exam to meet ALARA standards for radiation dose reduction. INDICATION: Follicular non-Hodgkin's lymphoma, follow-up. Correlation is made with prior CT from 04/16/2020. CT CHEST: FINDINGS: Left chest wall port remains with tip at the SVC right atrial junction. No definite axillary lymphadenopathy is detected. No mediastinal or hilar lymphadenopathy is identified. No pericardial or pleural fluid is detected. A noncalcified mass has developed in the right lower lobe measuring 19 mm. No other pulmonary parenchymal masses are seen. The area nodularity along the pleura adjacent to the right anterior 3rd rib is again noted and similar in appearance. There is questionable mild nodularity along the left hemidiaphragm which is similar to prior exam. There is some infiltrate or atelectasis in left lower lobe similar. IMPRESSION: Development of right lower lobe pulmonary nodule when compared with prior study from 04/16/2020. No thoracic lymphadenopathy is seen. Pleural nodularity appears stable. CT abdomen and pelvis: There is an ill-defined low density in the inferior right lobe of the liver measuring 10 mm. This was not definitely seen on prior imaging. No other liver masses are identified. Gallbladder is unremarkable. There is no biliary ductal dilatation. Pancreas and spleen are unremarkable. No adrenal mass is detected. Kidneys are unremarkable. The patient has developed adenopathy in the central retroperitoneum. Bulky lymph nodes are identified in the aortocaval and left periaortic location. There are multiple enlarged lymph nodes in the anterior abdomen just inferior to the greater curvature of the stomach. There appears to be enlarged lymph nodes in the hepatogastric ligament and some enlarged lymph nodes in the region of the kartik hepatis. There are enlarged iliac chain lymph nodes bilaterally as well as enlarged bilateral inguinal lymph nodes. This has all significantly increased since prior CT. Right groin node is 48 mm x 26 mm compared with 27 mm x 50 mm on prior. Aorta is nonaneurysmal. Bowel loops are normal caliber. There is no obstruction. No free fluid is seen. Bladder is unremarkable. The uterus appears to be surgically absent. Bony structures are nonacute. IMPRESSION: Adverse appearance of abdomen and pelvis since exam from 04/16/2020. Patient has developed significant lymphadenopathy throughout the abdomen and pelvis. There is an indeterminate low-attenuation lesion in the inferior right lobe of the liver which appears new. Dictated by: Dictated on workstation # [id number]
== END ==
LOC: RAD 09:45
PROVIDERS: ATTEND Internal Medicine Hematology & Oncology
DX: C82.90 Follicular lymphoma, unspecified, unspecified site (principal)
CPT/HCPCS: 71260; 74177

== ENCOUNTER 2020-11-06 10:49 | Outpatient (RCR) | payer MEDICARE, OTHER | END 2021-02-04 | disposition home or self-care (01) | LOC: ONC 10:49 | PROVIDERS: ATTEND Internal Medicine Hematology & Oncology | DX: Z45.2 Encounter for adjustment and management of vascular access device (principal); C82.49 Follicular lymphoma grade IIIb, extranodal and solid organ sites; R91.1 Solitary pulmonary nodule; E78.00 Pure hypercholesterolemia, unspecified; Z92.21 Personal history of antineoplastic chemotherapy; Z92.3 Personal history of irradiation | CPT/HCPCS: 71260; 74177; 80053; 83615; 85025; G0463; 36591; 99213 ==